=== PATIENT | male | born 1960 | race African-American/Black ===

== ENCOUNTER 2017-07-21 15:30 | Inpatient (IN) | payer MEDICARE ==
[~2017-07-21] VITALS: Ht 182.9 cm; Wt 84.6 kg
[2017-07-21] MEDS ORDERED: ONDANSETRON HCL 4 MG/2 ML VIAL ONE ×2 (16:43→20:22)
[2017-07-21] MEDS ORDERED: HYDROMORPHONE 1 MG/1 ML AMP ONE (16:44)
[2017-07-21] MEDS ORDERED: METOCLOPRAMIDE 10 MG/2 ML VIAL ONE (16:44)
[2017-07-21] MEDS ORDERED: SODIUM CHLORIDE 0.9% 1000ML 1,000 ML IV ONE (16:44)
[2017-07-21 17:38] LABS: BASOPHILS % (AUTO) 0.6 % (0.0-5.0); EOSINOPHILS % (AUTO) 0.4 % (0.0-8.0); LYMPHOCYTES % (AUTO) 17.9 % (21.0-51.0); MEAN CORPUSCULAR HEMOGLOBIN 31.3 pg (27.0-33.0); MEAN CORPUSCULAR HGB CONC 34.1 g/dL (32.0-36.0); MEAN CORPUSCULAR VOLUME 91.8 fL (79-99); MONOCYTES % (AUTO) 8.5 % (3.0-13.0); NEUTROPHILS % (AUTO) 72.6 % (40.0-77.0); NUCLEATED RED BLOOD CELLS 0.1 % (0.0-0.19); PLATELET COUNT (AUTO) 194 K/uL (130-400); RED CELL DISTRIBUTION WIDTH 14.5 % (11.0-15.5); WHITE BLOOD COUNT (AUTO) 8.2 K/uL (4.8-10.8)
[2017-07-21 17:49] LABS: ALBUMIN 3.7 g/dL (3.5-5.0); BILIRUBIN,TOTAL 0.7 mg/dL (0.2-1.0); POTASSIUM 4.1 mmol/L (3.5-5.1); TOTAL PROTEIN, SERUM 7.4 g/dL (6.0-8.3)
[2017-07-21 20:32] LABS: APPEARANCE,URINE Clear (CLEAR); BILIRUBIN,URINE Negative (NEGATIVE); COLOR,URINE Yellow (YELLOW); GLUCOSE, URINE (UA) TRACE mg/dL (NEGATIVE); KETONES,URINE Trace mg/dL (NEGATIVE); LEUKOCYTE ESTERASE ,URINE Negative (NEGATIVE); NITRATE,URINE Negative (NEGATIVE); OCCULT BLOOD,URINE Trace (NEGATIVE); PH,URINE 8.5 (5.0-8.0); PROTEIN,URINE POS 2+ (NEGATIVE)
[2017-07-21 20:48] LABS: BACTERIA,URINE Rare /HPF (None Seen); RBC,URINE None Seen /HPF (0-1); SQUAMOUS EPITHELIAL CELL,UR 0-2 /LPF (0-2); WBC,URINE 0-1 /HPF (0-1)
[2017-07-22] VITALS (7 sets, daily range): BP systolic 96–146; BP diastolic 60–87
[2017-07-22] MEDS ORDERED: HYDROMORPHONE HCL 2 MG/ML VIAL IVP PRN (01:00)
[2017-07-22] MEDS ORDERED: HYDROMORPHONE 1 MG/1 ML AMP IVP PRN (01:08)
[2017-07-22] MEDS ORDERED: HYDROMORPHONE HCL 2 MG/ML VIAL ONE ×2 (01:23→09:41)
[2017-07-22] MEDS: METOCLOPRAMIDE 10 MG/2 ML VIAL IVP SCH ×3 (05:50→22:17)
[2017-07-22] MEDS ORDERED: PANTOPRAZOLE 40 MG/VIAL IVP SCH (09:00)
[2017-07-22] MEDS: HYDROMORPHONE HCL 2 MG/ML VIAL IVP PRN ×2 (09:59→18:22)
[2017-07-22] MEDS: PANTOPRAZOLE SODIUM 40 MG TABLET.DR PO SCH (10:05)
[2017-07-22] MEDS: ERYTHROMYCIN BASE 250 MG TABLET PO SCH ×2 (17:40→23:48)
[2017-07-22] MEDS ORDERED: HEPARIN SODIUM 5000UNIT/ML 1ML VIAL IJ PRN (20:30)
[2017-07-22] MEDS ORDERED: SODIUM CHLORIDE 0.9% 1000ML 1,000 ML IV PRN (20:30)
[2017-07-22] MEDS ORDERED: ALBUMIN (HUMAN) 25% 100 ML IV PRN (20:30)
[2017-07-22] MEDS ORDERED: 0.9% SODIUM CHLORIDE 250 ML IV BAG IV PRN (20:30)
[2017-07-22] MEDS: HEPARIN SODIUM 5000UNIT/ML 1ML VIAL IJ PRN (23:48)
[2017-07-23] VITALS (12 sets, daily range): BP systolic 103–150; BP diastolic 60–85
[2017-07-23] MEDS ORDERED: HYDROMORPHONE 1 MG/1 ML AMP ONE (02:05)
[2017-07-23] MEDS: METOCLOPRAMIDE 10 MG/2 ML VIAL IVP SCH ×3 (06:00→19:55)
[2017-07-23] MEDS ORDERED: ONDANSETRON HCL 4 MG/2 ML VIAL IVP PRN (08:00)
[2017-07-23] MEDS: ERYTHROMYCIN BASE 250 MG TABLET PO SCH ×2 (08:15→17:34)
[2017-07-23] MEDS: HYDROMORPHONE HCL 2 MG/ML VIAL IVP PRN ×2 (09:57→18:12)
[2017-07-23] MEDS: PANTOPRAZOLE SODIUM 40 MG TABLET.DR PO SCH (14:29)
[2017-07-24] VITALS: BP 98/52
[2017-07-24] MEDS: ERYTHROMYCIN BASE 250 MG TABLET PO SCH ×3 (00:17→18:03)
[2017-07-24] MEDS: HYDROMORPHONE HCL 2 MG/ML VIAL IVP PRN ×3 (02:00→18:04)
[2017-07-24 04:00] VITALS: BP 106/66
[2017-07-24 05:47] LABS: MEAN CORPUSCULAR HEMOGLOBIN 32.7 pg (27.0-33.0); MEAN CORPUSCULAR HGB CONC 34.9 g/dL (32.0-36.0); MEAN CORPUSCULAR VOLUME 93.8 fL (79-99); PLATELET COUNT (AUTO) 165 K/uL (130-400); RED CELL DISTRIBUTION WIDTH 14.4 % (11.0-15.5); WHITE BLOOD COUNT (AUTO) 5.6 K/uL (4.8-10.8)
[2017-07-24 06:06] LABS: CREATININE 7.7 mg/dL (0.5-1.5); PHOSPHORUS 5.8 mg/dL (2.5-4.9); POTASSIUM 3.8 mmol/L (3.5-5.1)
[2017-07-24] MEDS: METOCLOPRAMIDE 5 MG TABLET PO SCH ×4 (06:08→21:48)
[2017-07-24 07:00] VITALS: BP 124/60
[2017-07-24 07:04] LABS: EOSINOPHILS % (MANUAL) 4 % (1-6); LYMPHOCYTES % (MANUAL) 30 % (22-44); MONOCYTES % (MANUAL) 8 % (2-9); SEGMENTED NEUTROPHILS % 58 % (40-70)
[2017-07-24 07:05] LABS: MAN.DIFF COMMENT-IMPRESSION MANUAL DIFFERENTIAL
[2017-07-24 07:06] LABS: PLATELET MORPHOLOGY COMMENT ADEQUATE
[2017-07-24] MEDS: PANTOPRAZOLE SODIUM 40 MG TABLET.DR PO SCH ×3 (09:00→21:47)
[2017-07-24 11:00] VITALS: BP 128/65
[2017-07-24 16:00] VITALS: BP 116/55
[2017-07-24 20:00] VITALS: BP 110/70
[2017-07-25] VITALS: BP 101/60
[2017-07-25] MEDS: ERYTHROMYCIN BASE 250 MG TABLET PO SCH ×3 (01:00→18:04)
[2017-07-25] MEDS: HYDROMORPHONE HCL 2 MG/ML VIAL IVP PRN ×4 (02:07→18:05)
[2017-07-25 04:00] VITALS: BP 116/82
[2017-07-25] MEDS: METOCLOPRAMIDE 5 MG TABLET PO SCH ×4 (06:47→21:51)
[2017-07-25 07:00] VITALS: BP 142/73
[2017-07-25] MEDS: PANTOPRAZOLE SODIUM 40 MG TABLET.DR PO SCH ×3 (09:00→21:51)
[2017-07-25 11:00] VITALS: BP 129/79
[2017-07-25 16:00] VITALS: BP 113/68
[2017-07-25 20:00] VITALS: BP_SYST 113; BP_SYST 133; BP_DIAS 74
[2017-07-26] VITALS (7 sets, daily range): BP systolic 100–128; BP diastolic 53–94
[2017-07-26] MEDS: ERYTHROMYCIN BASE 250 MG TABLET PO SCH ×3 (01:35→17:43)
[2017-07-26] MEDS: HYDROMORPHONE HCL 2 MG/ML VIAL IVP PRN ×3 (02:12→17:43)
[2017-07-26 05:58] LABS: MEAN CORPUSCULAR HEMOGLOBIN 32.8 pg (27.0-33.0); MEAN CORPUSCULAR HGB CONC 34.6 g/dL (32.0-36.0); PLATELET COUNT (AUTO) 151 K/uL (130-400); RED BLOOD CELL COUNT(AUTO) 3.26 MIL/uL (4.50-6.20); RED CELL DISTRIBUTION WIDTH 14.6 % (11.0-15.5); WHITE BLOOD COUNT (AUTO) 6.3 K/uL (4.8-10.8)
[2017-07-26 06:09] LABS: CREATININE 7.5 mg/dL (0.5-1.5); POTASSIUM 3.9 mmol/L (3.5-5.1)
[2017-07-26] MEDS: METOCLOPRAMIDE 5 MG TABLET PO SCH ×3 (06:49→17:43)
[2017-07-26] MEDS: PANTOPRAZOLE SODIUM 40 MG TABLET.DR PO SCH ×2 (10:00→22:01)
[2017-07-27] MEDS: ERYTHROMYCIN BASE 250 MG TABLET PO SCH ×2 (00:55→08:49)
[2017-07-27] MEDS: HYDROMORPHONE HCL 2 MG/ML VIAL IVP PRN ×2 (02:04→09:52)
[2017-07-27 03:15] VITALS: BP 109/74
[2017-07-27 06:18] LABS: HEMATOCRIT 29.6 % (42-54); MEAN CORPUSCULAR HEMOGLOBIN 31.2 pg (27.0-33.0); MEAN CORPUSCULAR HGB CONC 33.3 g/dL (32.0-36.0); MEAN CORPUSCULAR VOLUME 93.7 fL (79-99); PLATELET COUNT (AUTO) 154 K/uL (130-400); RED BLOOD CELL COUNT(AUTO) 3.16 MIL/uL (4.50-6.20); RED CELL DISTRIBUTION WIDTH 14.6 % (11.0-15.5); WHITE BLOOD COUNT (AUTO) 6.4 K/uL (4.8-10.8)
[2017-07-27 06:34] LABS: POTASSIUM 3.8 mmol/L (3.5-5.1)
[2017-07-27 06:38] LABS: CREATININE 8.3 mg/dL (0.5-1.5)
[2017-07-27 07:46] VITALS: BP 108/66
[2017-07-27] MEDS: HEPARIN SODIUM 5000UNIT/ML 1ML VIAL IJ PRN (08:36)
[2017-07-27] MEDS: METOCLOPRAMIDE 5 MG TABLET PO SCH ×2 (08:49→09:50)
[2017-07-27] MEDS: PANTOPRAZOLE SODIUM 40 MG TABLET.DR PO SCH (08:49)
[2017-07-27] MEDS ORDERED: PANT40TA25 PO (09:44)
== END 2017-07-27 10:35 | disposition home or self-care (01) | DRG 391 ==
LOC: EDH 15:30 → OBSVTOIN 18:25 → EDHIP 18:25 → 3DH 23:57 → 2AH 07-22 20:32
PROVIDERS: ADMIT Internal Medicine Nephrology; ATTEND Internal Medicine Nephrology
PROC: 5A1D70Z Performance of Urinary Filtration, Intermittent, Less than 6 Hours Per Day (ICD-10-PCS; 2017-07-22)
PROC: 0DB58ZX Excision of Esophagus, Via Natural or Artificial Opening Endoscopic, Diagnostic (ICD-10-PCS; principal; 2017-07-23)
PROC: 0DB68ZX Excision of Stomach, Via Natural or Artificial Opening Endoscopic, Diagnostic (ICD-10-PCS; 2017-07-23)
PROC: 5A1D70Z Performance of Urinary Filtration, Intermittent, Less than 6 Hours Per Day (ICD-10-PCS; 2017-07-24)
PROC: 5A1D70Z Performance of Urinary Filtration, Intermittent, Less than 6 Hours Per Day (ICD-10-PCS; 2017-07-27)
DX: K29.00 Acute gastritis without bleeding (principal); N18.6 End stage renal disease; I95.89 Other hypotension; E11.22 Type 2 diabetes mellitus with diabetic chronic kidney disease; E11.51 Type 2 diabetes mellitus with diabetic peripheral angiopathy without gangrene; K31.84 Gastroparesis; E11.43 Type 2 diabetes mellitus with diabetic autonomic (poly)neuropathy; I12.0 Hypertensive chronic kidney disease with stage 5 chronic kidney disease or end stage renal disease; R53.1 Weakness; K21.0 Gastro-esophageal reflux disease with esophagitis; K44.9 Diaphragmatic hernia without obstruction or gangrene; M54.9 Dorsalgia, unspecified; D64.9 Anemia, unspecified; E66.9 Obesity, unspecified; G89.29 Other chronic pain; Z28.21 Immunization not carried out because of patient refusal; Z98.84 Bariatric surgery status; Z99.2 Dependence on renal dialysis; Z82.49 Family history of ischemic heart disease and other diseases of the circulatory system; Z88.0 Allergy status to penicillin; Z68.25 Body mass index [BMI] 25.0-25.9, adult; Z90.49 Acquired absence of other specified parts of digestive tract
CPT/HCPCS: 36415; 76700; 80048; 80053; 81001; 82150; 83690; 84100; 85025; 85027; 88305; 88312; 88342; 90935; A4218; C9113; J1170; J1644; J2405; J2765; J7030

== ENCOUNTER 2017-08-09 18:22 | Inpatient (IN) | payer MEDICARE ==
[~2017-08-09] VITALS: Ht 182.9 cm; Wt 82.1 kg
[~2017-08-09 18:22] MED LIST: PANT40TA25 PO
[2017-08-09 19:18] LABS: APPEARANCE,URINE Clear (CLEAR); BILIRUBIN,URINE Negative (NEGATIVE); COLOR,URINE Yellow (YELLOW); GLUCOSE, URINE (UA) 250 mg/dL (NEGATIVE); KETONES,URINE Trace mg/dL (NEGATIVE); LEUKOCYTE ESTERASE ,URINE Negative (NEGATIVE); NITRATE,URINE Negative (NEGATIVE); OCCULT BLOOD,URINE Small (NEGATIVE); PH,URINE 8.5 (5.0-8.0); PROTEIN,URINE POS 2+ (NEGATIVE); UROBILINOGEN,URINE 0.2 mg/dL (0.2-1.0)
[2017-08-09 19:26] LABS: AMPHET/METH SCREEN,URINE NEGATIVE (NEGATIVE); BARBITURATE SCREEN, URINE NEGATIVE (NEGATIVE); BENZODIAZEPINES SCREEN,URINE NEGATIVE (NEGATIVE); CANNABINOID SCREEN,URINE NEGATIVE (NEGATIVE); COCAINE SCREEN,URINE POSITIVE (NEGATIVE); OPIATE SCREEN,URINE NEGATIVE (NEGATIVE); PHENCYCLIDINE SCREEN,URINE NEGATIVE (NEGATIVE)
[2017-08-09 20:22] LABS: BACTERIA,URINE Rare /HPF (None Seen); RBC,URINE 0-1 /HPF (0-1); SQUAMOUS EPITHELIAL CELL,UR Rare /LPF (0-2); WBC,URINE 0-1 /HPF (0-1)
[2017-08-09 20:30] LABS: BASOPHILS % (AUTO) 0.7 % (0.0-5.0); EOSINOPHILS % (AUTO) 0.2 % (0.0-8.0); HEMATOCRIT 30.4 % (42-54); LYMPHOCYTES % (AUTO) 9.1 % (21.0-51.0); MEAN CORPUSCULAR HGB CONC 33.9 g/dL (32.0-36.0); MEAN CORPUSCULAR VOLUME 91.6 fL (79-99); MONOCYTES % (AUTO) 3.2 % (3.0-13.0); NEUTROPHILS % (AUTO) 86.8 % (40.0-77.0); PLATELET COUNT (AUTO) 172 K/uL (130-400); RED BLOOD CELL COUNT(AUTO) 3.32 MIL/uL (4.50-6.20); RED CELL DISTRIBUTION WIDTH 14.7 % (11.0-15.5); WHITE BLOOD COUNT (AUTO) 8.1 K/uL (4.8-10.8)
[2017-08-09 20:47] LABS: ALBUMIN 3.7 g/dL (3.5-5.0); BILIRUBIN,TOTAL 0.5 mg/dL (0.2-1.0); POTASSIUM 4.3 mmol/L (3.5-5.1); TOTAL PROTEIN, SERUM 7.6 g/dL (6.0-8.3)
[2017-08-09 20:48] LABS: CREATININE 11.3 mg/dL (0.5-1.5)
[2017-08-09] MEDS ORDERED: ONDANSETRON HCL 4 MG/2 ML VIAL ONE (21:04)
[2017-08-09] MEDS ORDERED: HYDROMORPHONE 1 MG/1 ML AMP ONE (21:04)
[2017-08-10] MEDS ORDERED: HYDROMORPHONE 1 MG/1 ML AMP ONE ×4 (03:52→22:24)
[2017-08-10] MEDS ORDERED: ONDANSETRON HCL 4 MG/2 ML VIAL ONE ×4 (03:53→22:24)
[2017-08-10 06:45] LABS: BASOPHILS % (AUTO) 0.7 % (0.0-5.0); EOSINOPHILS % (AUTO) 0.4 % (0.0-8.0); HEMATOCRIT 29.4 % (42-54); MEAN CORPUSCULAR HEMOGLOBIN 31.2 pg (27.0-33.0); MEAN CORPUSCULAR HGB CONC 33.9 g/dL (32.0-36.0); MEAN CORPUSCULAR VOLUME 92.1 fL (79-99); MONOCYTES % (AUTO) 5.6 % (3.0-13.0); NEUTROPHILS % (AUTO) 76.3 % (40.0-77.0); NUCLEATED RED BLOOD CELLS 0.1 % (0.0-0.19); PLATELET COUNT (AUTO) 203 K/uL (130-400); RED BLOOD CELL COUNT(AUTO) 3.19 MIL/uL (4.50-6.20); RED CELL DISTRIBUTION WIDTH 14.6 % (11.0-15.5); WHITE BLOOD COUNT (AUTO) 8.3 K/uL (4.8-10.8)
[2017-08-10 06:59] LABS: ALBUMIN 3.4 g/dL (3.5-5.0); BILIRUBIN,DIRECT 0.1 mg/dL (0.0-0.3); BILIRUBIN,TOTAL 0.5 mg/dL (0.2-1.0); POTASSIUM 4.8 mmol/L (3.5-5.1); TOTAL PROTEIN, SERUM 6.9 g/dL (6.0-8.3)
[2017-08-10 07:09] LABS: CREATININE 11.7 mg/dL (0.5-1.5)
[2017-08-10] MEDS ORDERED: HYDR-4068 PO (10:38)
[2017-08-10] MEDS ORDERED: METO5 PO (10:38)
[2017-08-10] MEDS ORDERED: HEPARIN SODIUM 5000UNIT/ML 1ML VIAL ONE (12:52)
[2017-08-10 23:47] VITALS: BP 123/83
[2017-08-11] MEDS ORDERED: HYDROMORPHONE 1 MG/1 ML AMP IVP PRN (01:45)
[2017-08-11] MEDS: HYDROMORPHONE HCL 2 MG/ML VIAL IVP PRN ×4 (03:45→22:38)
[2017-08-11] MEDS: ONDANSETRON HCL 4 MG/2 ML VIAL IVP PRN ×5 (03:51→22:41)
[2017-08-11 04:00] VITALS: BP 108/71
[2017-08-11 06:04] LABS: HEMATOCRIT 28.9 % (42-54); MEAN CORPUSCULAR HEMOGLOBIN 32.6 pg (27.0-33.0); MEAN CORPUSCULAR HGB CONC 35.2 g/dL (32.0-36.0); MEAN CORPUSCULAR VOLUME 92.6 fL (79-99); NUCLEATED RED BLOOD CELLS 0.1 % (0.0-0.19); PLATELET COUNT (AUTO) 181 K/uL (130-400); RED BLOOD CELL COUNT(AUTO) 3.12 MIL/uL (4.50-6.20); RED CELL DISTRIBUTION WIDTH 14.6 % (11.0-15.5); WHITE BLOOD COUNT (AUTO) 6.8 K/uL (4.8-10.8)
[2017-08-11 06:17] LABS: POTASSIUM 4.1 mmol/L (3.5-5.1)
[2017-08-11 07:16] VITALS: BP 101/66
[2017-08-11] MEDS ORDERED: PANTOPRAZOLE 40 MG/VIAL IVP SCH (09:00)
[2017-08-11 10:40] VITALS: BP 110/70
[2017-08-11] MEDS: METOCLOPRAMIDE 5 MG TABLET PO SCH ×2 (12:50→16:43)
[2017-08-11 16:45] VITALS: BP 131/87
[2017-08-11 19:46] VITALS: BP 114/58
[2017-08-11 23:39] VITALS: BP 123/63
[2017-08-12 03:53] VITALS: BP 106/69
[2017-08-12] MEDS: HYDROMORPHONE HCL 2 MG/ML VIAL IVP PRN ×4 (04:43→22:28)
[2017-08-12] MEDS: ONDANSETRON HCL 4 MG/2 ML VIAL IVP PRN ×4 (04:43→22:28)
[2017-08-12] MEDS: METOCLOPRAMIDE 5 MG TABLET PO SCH ×3 (06:11→16:27)
[2017-08-12] MEDS ORDERED: ALBUMIN (HUMAN) 25% 100 ML IV PRN (06:30)
[2017-08-12] MEDS ORDERED: SODIUM CHLORIDE 0.9% 1000ML 1,000 ML IV PRN (06:30)
[2017-08-12] MEDS ORDERED: 0.9% SODIUM CHLORIDE 250 ML IV BAG IV PRN (06:30)
[2017-08-12] MEDS ORDERED: HEPARIN SODIUM 5000UNIT/ML 1ML VIAL IJ PRN ×2 (06:30)
[2017-08-12 08:00] VITALS: BP 112/65
[2017-08-12] MEDS: PANTOPRAZOLE SODIUM 40 MG TABLET.DR PO SCH (09:00)
[2017-08-12 09:32] LABS: BASOPHILS % (AUTO) 1.2 % (0.0-5.0); EOSINOPHILS % (AUTO) 6.1 % (0.0-8.0); HEMATOCRIT 30.5 % (42-54); LYMPHOCYTES % (AUTO) 20.1 % (21.0-51.0); MEAN CORPUSCULAR HEMOGLOBIN 31.5 pg (27.0-33.0); MEAN CORPUSCULAR HGB CONC 34.1 g/dL (32.0-36.0); MEAN CORPUSCULAR VOLUME 92.1 fL (79-99); MONOCYTES % (AUTO) 7.8 % (3.0-13.0); NEUTROPHILS % (AUTO) 64.8 % (40.0-77.0); PLATELET COUNT (AUTO) 157 K/uL (130-400); RED BLOOD CELL COUNT(AUTO) 3.31 MIL/uL (4.50-6.20); RED CELL DISTRIBUTION WIDTH 14.8 % (11.0-15.5); WHITE BLOOD COUNT (AUTO) 6.3 K/uL (4.8-10.8)
[2017-08-12 09:34] LABS: CREATININE 5.9 mg/dL (0.5-1.5); POTASSIUM 3.1 mmol/L (3.5-5.1)
[2017-08-12 09:40] LABS: PARTIAL THROMBOPLASTIN TIME 23.2 SEC (26.3-35.5)
[2017-08-12 09:58] LABS: INR 0.99 (0.85-1.15); PROTHROMBIN TIME 10.4 SEC (9.6-11.6)
[2017-08-12] MEDS ORDERED: LIDOCAINE HCL 1% MDV 50ML VIAL ONE (10:05)
[2017-08-12] MEDS ORDERED: ONDANSETRON HCL 4 MG/2 ML VIAL IVP ONE (10:16)
[2017-08-12 11:49] VITALS: BP_SYST 102; BP_SYST 130; BP_DIAS 62; BP_DIAS 75
[2017-08-12 15:59] VITALS: BP 104/58
[2017-08-12 20:00] VITALS: BP 104/61
[2017-08-12 23:55] VITALS: BP 103/61
[2017-08-13 04:00] VITALS: BP 104/68
[2017-08-13] MEDS: ONDANSETRON HCL 4 MG/2 ML VIAL IVP PRN ×4 (04:26→22:36)
[2017-08-13] MEDS: HYDROMORPHONE HCL 2 MG/ML VIAL IVP PRN ×4 (04:26→22:36)
[2017-08-13] MEDS: METOCLOPRAMIDE 5 MG TABLET PO SCH ×3 (06:50→16:30)
[2017-08-13 08:03] VITALS: BP 101/63
[2017-08-13] MEDS: PANTOPRAZOLE SODIUM 40 MG TABLET.DR PO SCH (09:46)
[2017-08-13 12:03] VITALS: BP 139/65
[2017-08-13 16:00] VITALS: BP 109/67
[2017-08-13 19:00] VITALS: BP 108/71
[2017-08-13] MEDS ORDERED: ZOLPIDEM TARTRATE 5 MG TAB PO SCH (21:00)
[2017-08-14] VITALS (7 sets, daily range): BP systolic 87–112; BP diastolic 55–68
[2017-08-14] MEDS: METOCLOPRAMIDE 5 MG TABLET PO SCH ×3 (06:18→16:15)
[2017-08-14] MEDS: HYDROMORPHONE HCL 2 MG/ML VIAL IVP PRN ×3 (06:18→18:11)
[2017-08-14] MEDS: ONDANSETRON HCL 4 MG/2 ML VIAL IVP PRN ×2 (06:18→18:11)
[2017-08-14] MEDS: PANTOPRAZOLE SODIUM 40 MG TABLET.DR PO SCH (11:36)
[2017-08-14] MEDS: MIDODRINE HCL 5 MG TABLET PO SCH ×2 (16:15→21:28)
[2017-08-14] MEDS: ZOLPIDEM TARTRATE 5 MG TAB PO SCH (21:28)
[2017-08-15 03:15] VITALS: BP 100/55
[2017-08-15] MEDS: ONDANSETRON HCL 4 MG/2 ML VIAL IVP PRN ×3 (04:44→19:01)
[2017-08-15] MEDS: HYDROMORPHONE HCL 2 MG/ML VIAL IVP PRN ×3 (04:50→19:06)
[2017-08-15] MEDS: METOCLOPRAMIDE 5 MG TABLET PO SCH ×3 (06:57→16:34)
[2017-08-15 09:13] VITALS: BP 77/43
[2017-08-15] MEDS: PANTOPRAZOLE SODIUM 40 MG TABLET.DR PO SCH (11:53)
[2017-08-15] MEDS: MIDODRINE HCL 5 MG TABLET PO SCH ×3 (11:53→22:01)
[2017-08-15 12:12] VITALS: BP 104/46
[2017-08-15 15:56] VITALS: BP 114/45
[2017-08-15 19:55] VITALS: BP 97/60
[2017-08-15] MEDS: ZOLPIDEM TARTRATE 5 MG TAB PO SCH (22:01)
[2017-08-15 23:15] VITALS: BP 110/55
[2017-08-16] MEDS: ONDANSETRON HCL 4 MG/2 ML VIAL IVP PRN ×2 (01:29→08:46)
[2017-08-16] MEDS: HYDROMORPHONE HCL 2 MG/ML VIAL IVP PRN ×2 (01:35→08:46)
[2017-08-16 03:00] VITALS: BP 101/56
[2017-08-16] MEDS: METOCLOPRAMIDE 5 MG TABLET PO SCH (07:01)
[2017-08-16 07:42] VITALS: BP 111/64
[2017-08-16] MEDS: MIDODRINE HCL 5 MG TABLET PO SCH (08:45)
[2017-08-16] MEDS: PANTOPRAZOLE SODIUM 40 MG TABLET.DR PO SCH (08:45)
[2017-08-16 11:32] VITALS: BP 135/95
== END 2017-08-16 13:35 | disposition home or self-care (01) | DRG 377 ==
LOC: EDH 18:22 → EDHIP 21:29 → 3AH 08-10 22:36
PROVIDERS: ADMIT Internal Medicine Nephrology; ATTEND Internal Medicine Nephrology
PROC: 5A1D70Z Performance of Urinary Filtration, Intermittent, Less than 6 Hours Per Day (ICD-10-PCS; 2017-08-10)
PROC: 05PYX3Z Removal of Infusion Device from Upper Vein, External Approach (ICD-10-PCS; principal; 2017-08-12)
PROC: 5A1D70Z Performance of Urinary Filtration, Intermittent, Less than 6 Hours Per Day (ICD-10-PCS; 2017-08-12)
DX: K27.4 Chronic or unspecified peptic ulcer, site unspecified, with hemorrhage (principal); N18.6 End stage renal disease; I95.89 Other hypotension; I12.0 Hypertensive chronic kidney disease with stage 5 chronic kidney disease or end stage renal disease; E11.21 Type 2 diabetes mellitus with diabetic nephropathy; K31.84 Gastroparesis; E11.43 Type 2 diabetes mellitus with diabetic autonomic (poly)neuropathy; G47.00 Insomnia, unspecified; G89.29 Other chronic pain; E66.9 Obesity, unspecified; E11.22 Type 2 diabetes mellitus with diabetic chronic kidney disease; D64.9 Anemia, unspecified; Z99.2 Dependence on renal dialysis; Z28.21 Immunization not carried out because of patient refusal; Z98.84 Bariatric surgery status; Z91.15 Patient's noncompliance with renal dialysis; Z88.0 Allergy status to penicillin; Z91.19 Patient's noncompliance with other medical treatment and regimen; Z76.5 Malingerer [conscious simulation]; Z68.24 Body mass index [BMI] 24.0-24.9, adult
CPT/HCPCS: 36415; 36589; 71045; 80048; 80053; 80076; 80305; 81001; 82948; 83690; 84100; 85025; 85027; 85610; 85730; 90935; 93005; C9113; J1170; J1644; J2405; J3490

== ENCOUNTER 2017-08-28 12:31 | Inpatient (IN) | payer MEDICARE ==
[~2017-08-28] VITALS: Ht 182.9 cm; Wt 81.9 kg
[~2017-08-28 12:31] MED LIST changes: +HYDR-4068 PO; +METO5 PO
[2017-08-28 13:45] LABS: BASOPHILS % (AUTO) 0.6 % (0.0-5.0); EOSINOPHILS % (AUTO) 0.2 % (0.0-8.0); HEMATOCRIT 30.6 % (42-54); MEAN CORPUSCULAR HEMOGLOBIN 31.3 pg (27.0-33.0); MEAN CORPUSCULAR HGB CONC 33.4 g/dL (32.0-36.0); MEAN CORPUSCULAR VOLUME 93.6 fL (79-99); MONOCYTES % (AUTO) 3.2 % (3.0-13.0); PLATELET COUNT (AUTO) 210 K/uL (130-400); RED BLOOD CELL COUNT(AUTO) 3.27 MIL/uL (4.50-6.20); RED CELL DISTRIBUTION WIDTH 15.7 % (11.0-15.5); WHITE BLOOD COUNT (AUTO) 8.1 K/uL (4.8-10.8)
[2017-08-28] MEDS ORDERED: SODIUM CHLORIDE 0.9% 1000ML 1,000 ML IV ONE (13:57)
[2017-08-28] MEDS ORDERED: ONDANSETRON HCL 4 MG/2 ML VIAL ONE ×2 (13:57→17:08)
[2017-08-28 14:13] LABS: ALBUMIN 3.9 g/dL (3.5-5.0); BILIRUBIN,TOTAL 0.5 mg/dL (0.2-1.0); POTASSIUM 4.1 mmol/L (3.5-5.1); TOTAL PROTEIN, SERUM 8.3 g/dL (6.0-8.3)
[2017-08-28 14:28] LABS: CREATININE 10.9 mg/dL (0.5-1.5)
[2017-08-28] MEDS ORDERED: HYDROMORPHONE HCL 2 MG/ML VIAL ONE ×2 (14:44→21:02)
[2017-08-28] MEDS ORDERED: METOCLOPRAMIDE 10 MG/2 ML VIAL IVP SCH (17:45)
[2017-08-28 18:35] VITALS: BP 189/98
[2017-08-28 20:00] VITALS: BP 155/90
[2017-08-28] MEDS: ONDANSETRON HCL 4 MG/2 ML VIAL IVP PRN (21:09)
[2017-08-29] VITALS: BP 128/86
[2017-08-29] MEDS: METOCLOPRAMIDE 10 MG/2 ML VIAL IVP SCH ×2 (01:11→16:49)
[2017-08-29 04:00] VITALS: BP 146/88
[2017-08-29] MEDS ORDERED: HYDROMORPHONE HCL 2 MG/ML VIAL ONE (04:16)
[2017-08-29] MEDS: ONDANSETRON HCL 4 MG/2 ML VIAL IVP PRN ×2 (04:54→16:49)
[2017-08-29 05:41] LABS: BASOPHILS % (AUTO) 0.7 % (0.0-5.0); EOSINOPHILS % (AUTO) 0.7 % (0.0-8.0); HEMATOCRIT 25.8 % (42-54); LYMPHOCYTES % (AUTO) 14.4 % (21.0-51.0); MEAN CORPUSCULAR HEMOGLOBIN 32.8 pg (27.0-33.0); MEAN CORPUSCULAR VOLUME 93.7 fL (79-99); MONOCYTES % (AUTO) 6.3 % (3.0-13.0); NEUTROPHILS % (AUTO) 77.9 % (40.0-77.0); PLATELET COUNT (AUTO) 190 K/uL (130-400); RED BLOOD CELL COUNT(AUTO) 2.76 MIL/uL (4.50-6.20); RED CELL DISTRIBUTION WIDTH 15.5 % (11.0-15.5); WHITE BLOOD COUNT (AUTO) 6.7 K/uL (4.8-10.8)
[2017-08-29 05:48] LABS: POTASSIUM 4.2 mmol/L (3.5-5.1)
[2017-08-29 05:51] LABS: CREATININE 11.2 mg/dL (0.5-1.5)
[2017-08-29 07:30] VITALS: BP 140/90
[2017-08-29] MEDS ORDERED: FAMOTIDINE/PF 20 MG/2 ML VIAL IV SCH (09:00)
[2017-08-29 11:00] VITALS: BP 122/67
[2017-08-29] MEDS: HYDROMORPHONE 1 MG/1 ML AMP IVP PRN ×2 (13:10→20:57)
[2017-08-29 16:00] VITALS: BP 128/76
[2017-08-29 20:00] VITALS: BP 164/97
[2017-08-30] VITALS: BP 150/97
[2017-08-30] MEDS: METOCLOPRAMIDE 10 MG/2 ML VIAL IVP SCH ×3 (01:01→17:00)
[2017-08-30 04:00] VITALS: BP 126/84
[2017-08-30] MEDS: HYDROMORPHONE 1 MG/1 ML AMP IVP PRN ×2 (04:59→20:02)
[2017-08-30] MEDS: ONDANSETRON HCL 4 MG/2 ML VIAL IVP PRN ×2 (04:59→11:32)
[2017-08-30 07:30] VITALS: BP 122/71
[2017-08-30] MEDS: PANTOPRAZOLE SODIUM 40 MG TABLET.DR PO SCH (09:05)
[2017-08-30 11:00] VITALS: BP 122/77
[2017-08-30] MEDS ORDERED: HYDROMORPHONE HCL 2 MG/ML VIAL ONE (12:47)
[2017-08-30 16:00] VITALS: BP 154/84
[2017-08-30 20:00] VITALS: BP 128/79
[2017-08-30] MEDS: ZOLPIDEM TARTRATE 5 MG TAB PO SCH (20:02)
[2017-08-31] VITALS (7 sets, daily range): BP systolic 106–145; BP diastolic 64–83
[2017-08-31] MEDS: METOCLOPRAMIDE 10 MG/2 ML VIAL IVP SCH ×3 (01:00→16:57)
[2017-08-31] MEDS: ONDANSETRON HCL 4 MG/2 ML VIAL IVP PRN ×3 (04:01→19:58)
[2017-08-31] MEDS: HYDROMORPHONE 1 MG/1 ML AMP IVP PRN (04:02)
[2017-08-31] MEDS: PANTOPRAZOLE SODIUM 40 MG TABLET.DR PO SCH (09:02)
[2017-08-31] MEDS ORDERED: HEPARIN SODIUM 5000UNIT/ML 1ML VIAL IJ PRN (10:45)
[2017-08-31] MEDS ORDERED: 0.9% SODIUM CHLORIDE 250 ML IV BAG IV PRN (10:45)
[2017-08-31] MEDS ORDERED: ALBUMIN (HUMAN) 25% 100 ML IV PRN (10:45)
[2017-08-31] MEDS ORDERED: SODIUM CHLORIDE 0.9% 1000ML 1,000 ML IV PRN (10:45)
[2017-08-31 11:48] LABS: HEMATOCRIT 27.2 % (42-54); MEAN CORPUSCULAR HEMOGLOBIN 32.5 pg (27.0-33.0); MEAN CORPUSCULAR HGB CONC 34.8 g/dL (32.0-36.0); MEAN CORPUSCULAR VOLUME 93.3 fL (79-99); PLATELET COUNT (AUTO) 200 K/uL (130-400); RED BLOOD CELL COUNT(AUTO) 2.91 MIL/uL (4.50-6.20); RED CELL DISTRIBUTION WIDTH 15.3 % (11.0-15.5)
[2017-08-31 11:57] LABS: POTASSIUM 4.3 mmol/L (3.5-5.1)
[2017-08-31] MEDS ORDERED: HYDROMORPHONE HCL 2 MG/ML VIAL ONE ×2 (12:01→19:55)
[2017-08-31 12:10] LABS: CREATININE 12.2 mg/dL (0.5-1.5)
[2017-08-31 12:18] LABS: PARTIAL THROMBOPLASTIN TIME 27.3 SEC (26.3-35.5); PROTHROMBIN TIME 10.5 SEC (9.6-11.6)
[2017-08-31] MEDS: ZOLPIDEM TARTRATE 5 MG TAB PO SCH (19:58)
[2017-09-01] VITALS (7 sets, daily range): BP systolic 119–148; BP diastolic 70–85
[2017-09-01] MEDS: METOCLOPRAMIDE 10 MG/2 ML VIAL IVP SCH ×3 (00:50→16:11)
[2017-09-01] MEDS ORDERED: HYDROMORPHONE HCL 2 MG/ML VIAL ONE ×2 (04:03→12:15)
[2017-09-01] MEDS: ONDANSETRON HCL 4 MG/2 ML VIAL IVP PRN ×3 (04:08→21:03)
[2017-09-01] MEDS ORDERED: LIDOCAINE HCL 1% MDV 50ML VIAL ONE (07:56)
[2017-09-01] MEDS ORDERED: ALTEPLASE 2 MG/2 ML IVCATH ONE (07:57)
[2017-09-01] MEDS ORDERED: ISOVUE-300 100 ML VIAL IV ONE (07:59)
[2017-09-01] MEDS ORDERED: MIDAZOLAM HCL 1 MG/ML 2ML VIAL ONE ×3 (08:32→08:57)
[2017-09-01] MEDS ORDERED: MORPHINE SULFATE 10 MG/ML 1ML SYG ONE (08:33)
[2017-09-01] MEDS ORDERED: MORPHINE SULFATE 2 MG/ML 1ML SYG ONE (08:58)
[2017-09-01] MEDS: PANTOPRAZOLE SODIUM 40 MG TABLET.DR PO SCH (10:10)
[2017-09-01] MEDS: ZOLPIDEM TARTRATE 5 MG TAB PO SCH (21:02)
[2017-09-01] MEDS: HYDROMORPHONE HCL 2 MG/ML VIAL IVP PRN (21:03)
[2017-09-02] MEDS ORDERED: METOCLOPRAMIDE 10 MG/2 ML VIAL ONE (01:32)
[2017-09-02] MEDS: METOCLOPRAMIDE 10 MG/2 ML VIAL IVP SCH ×3 (01:46→10:50)
[2017-09-02 04:00] VITALS: BP_SYST 114; BP_SYST 142; BP_DIAS 61; BP_DIAS 76
[2017-09-02] MEDS: ONDANSETRON HCL 4 MG/2 ML VIAL IVP PRN ×2 (05:47→14:11)
[2017-09-02] MEDS: HYDROMORPHONE HCL 2 MG/ML VIAL IVP PRN ×2 (05:52→14:12)
[2017-09-02 08:30] VITALS: BP 89/61
[2017-09-02] MEDS: PANTOPRAZOLE SODIUM 40 MG TABLET.DR PO SCH (09:45)
[2017-09-02 11:35] VITALS: BP 103/54
[2017-09-02 17:00] VITALS: BP 106/61
[2017-09-02 20:00] VITALS: BP 117/74
[2017-09-02] MEDS: ZOLPIDEM TARTRATE 5 MG TAB PO SCH (20:05)
[2017-09-02 23:31] VITALS: BP 98/57
[2017-09-03] MEDS: METOCLOPRAMIDE 10 MG/2 ML VIAL IVP SCH ×2 (01:00→07:55)
[2017-09-03 04:00] VITALS: BP 111/61
[2017-09-03 07:36] VITALS: BP 98/73
[2017-09-03] MEDS: PANTOPRAZOLE SODIUM 40 MG TABLET.DR PO SCH (07:54)
== END 2017-09-03 11:45 | disposition home or self-care (01) | DRG 314 ==
LOC: EDH 12:31 → EDHIP 16:11 → OBSVTOIN 16:11 → 4BH 18:35
PROVIDERS: ADMIT Internal Medicine Nephrology; ATTEND Internal Medicine Nephrology
PROC: 5A1D70Z Performance of Urinary Filtration, Intermittent, Less than 6 Hours Per Day (ICD-10-PCS; 2017-08-31)
PROC: 5A1D70Z Performance of Urinary Filtration, Intermittent, Less than 6 Hours Per Day (ICD-10-PCS; 2017-09-01)
PROC: B51W1ZZ Fluoroscopy of Dialysis Shunt/Fistula using Low Osmolar Contrast (ICD-10-PCS; principal; 2017-09-03)
DX: T82.510A Breakdown (mechanical) of surgically created arteriovenous fistula, initial encounter (principal); N18.6 End stage renal disease; I12.0 Hypertensive chronic kidney disease with stage 5 chronic kidney disease or end stage renal disease; E11.22 Type 2 diabetes mellitus with diabetic chronic kidney disease; K31.84 Gastroparesis; E11.43 Type 2 diabetes mellitus with diabetic autonomic (poly)neuropathy; Y71.2 Prosthetic and other implants, materials and accessory cardiovascular devices associated with adverse incidents; Z99.2 Dependence on renal dialysis; Z91.19 Patient's noncompliance with other medical treatment and regimen; G89.29 Other chronic pain; Z88.0 Allergy status to penicillin
CPT/HCPCS: 36415; 36901; 36902; 36907; 71045; 74176; 80048; 80053; 83690; 84132; 85025; 85027; 85610; 85730; 87040; 90935; 99152; 99153; C1769; C1894; J1170; J1644; J2250; J2270; J2405; J2765; J2997; J3490; J7030; Q9967

== ENCOUNTER 2017-09-15 11:56 | Emergency (ER) | payer MEDICARE ==
[2017-09-15 13:27] LABS: APPEARANCE,URINE CLEAR (CLEAR); BILIRUBIN,URINE NEGATIVE (NEGATIVE); COLOR,URINE YELLOW (YELLOW); GLUCOSE, URINE (UA) 250 mg/dL (NEGATIVE); KETONES,URINE NEGATIVE (NEGATIVE); LEUKOCYTE ESTERASE ,URINE NEGATIVE (NEGATIVE); NITRATE,URINE NEGATIVE (NEGATIVE); OCCULT BLOOD,URINE SMALL (NEGATIVE); PROTEIN,URINE 100 (NEGATIVE); UROBILINOGEN,URINE 0.2 mg/dL (0.2-1.0)
[2017-09-15 13:31] LABS: AMPHET/METH SCREEN,URINE NEGATIVE (NEGATIVE); BARBITURATE SCREEN, URINE NEGATIVE (NEGATIVE); BENZODIAZEPINES SCREEN,URINE NEGATIVE (NEGATIVE); CANNABINOID SCREEN,URINE NEGATIVE (NEGATIVE); COCAINE SCREEN,URINE NEGATIVE (NEGATIVE); OPIATE SCREEN,URINE NEGATIVE (NEGATIVE); PHENCYCLIDINE SCREEN,URINE NEGATIVE (NEGATIVE)
[2017-09-15 13:39] LABS: BACTERIA,URINE Rare /HPF (None Seen); RBC,URINE 0-1 /HPF (0-1); SQUAMOUS EPITHELIAL CELL,UR Rare /LPF (0-2); WBC,URINE 0-1 /HPF (0-1)
[2017-09-15 14:18] LABS: BASOPHILS % (AUTO) 0.4 % (0.0-5.0); HEMATOCRIT 28.4 % (42-54); MEAN CORPUSCULAR HEMOGLOBIN 32.6 pg (27.0-33.0); MEAN CORPUSCULAR HGB CONC 35.3 g/dL (32.0-36.0); MEAN CORPUSCULAR VOLUME 92.6 fL (79-99); NEUTROPHILS % (AUTO) 89.6 % (40.0-77.0); NUCLEATED RED BLOOD CELLS 0.1 % (0.0-0.19); PLATELET COUNT (AUTO) 175 K/uL (130-400); RED BLOOD CELL COUNT(AUTO) 3.06 MIL/uL (4.50-6.20); RED CELL DISTRIBUTION WIDTH 15.2 % (11.0-15.5); WHITE BLOOD COUNT (AUTO) 9.1 K/uL (4.8-10.8)
[2017-09-15 14:43] LABS: ALBUMIN 3.7 g/dL (3.5-5.0); BILIRUBIN,TOTAL 0.5 mg/dL (0.2-1.0); CREATINE KINASE MB 5.2 ng/mL (0.5-3.6); TOTAL PROTEIN, SERUM 7.6 g/dL (6.0-8.3)
[2017-09-15 14:49] LABS: CREATININE 9.9 mg/dL (0.5-1.5)
[2017-09-15] MEDS ORDERED: ONDANSETRON ODT 4 MG TAB ONE (15:03)
[2017-09-15] MEDS ORDERED: HYDROMORPHONE HCL 0.5 MG/0.5 ML ML ONE (15:04)
[2017-09-15] MEDS ORDERED: PANTOPRAZOLE SODIUM 40 MG TABLET.DR PO ONE (15:40)
[2017-09-15 16:34] LABS: INR 0.95 (0.85-1.15); PARTIAL THROMBOPLASTIN TIME 28.2 SEC (26.3-35.5)
== END 2017-09-15 16:00 | disposition home or self-care (01) ==
LOC: EDH 11:56
DX: G89.4 Chronic pain syndrome (principal); E11.22 Type 2 diabetes mellitus with diabetic chronic kidney disease; I12.0 Hypertensive chronic kidney disease with stage 5 chronic kidney disease or end stage renal disease; N18.6 End stage renal disease; Z79.4 Long term (current) use of insulin; Z87.891 Personal history of nicotine dependence; Z88.0 Allergy status to penicillin
CPT/HCPCS: 36415; 71046; 74176; 80053; 80305; 81001; 82150; 82550; 82553; 83690; 84484; 85025; 85610; 85730; 86850; 86900; 86901; 93005; 96372; 99285; J1170

== ENCOUNTER 2017-10-01 20:38 | Emergency (ER) | payer MEDICARE ==
[2017-10-01] MEDS ORDERED: SODIUM CHLORIDE 0.9% 250 ML IV ONE (21:19)
[2017-10-01] MEDS ORDERED: PROMETHAZINE HCL 25 MG/ML 1ML AMPULE IM ONE (21:19)
[2017-10-01 21:23] LABS: BASOPHILS % (AUTO) 0.5 % (0.0-5.0); EOSINOPHILS % (AUTO) 0.7 % (0.0-8.0); HEMATOCRIT 36.3 % (42-54); MEAN CORPUSCULAR HEMOGLOBIN 32.1 pg (27.0-33.0); MEAN CORPUSCULAR HGB CONC 34.3 g/dL (32.0-36.0); MEAN CORPUSCULAR VOLUME 93.4 fL (79-99); MONOCYTES % (AUTO) 7.4 % (3.0-13.0); NEUTROPHILS % (AUTO) 78.4 % (40.0-77.0); NUCLEATED RED BLOOD CELLS 0.1 % (0.0-0.19); PLATELET COUNT (AUTO) 232 K/uL (130-400); RED BLOOD CELL COUNT(AUTO) 3.89 MIL/uL (4.50-6.20); RED CELL DISTRIBUTION WIDTH 15.3 % (11.0-15.5); WHITE BLOOD COUNT (AUTO) 9.1 K/uL (4.8-10.8)
[2017-10-01 21:30] LABS: APPEARANCE,URINE Clear (CLEAR); BILIRUBIN,URINE Negative (NEGATIVE); COLOR,URINE Yellow (YELLOW); GLUCOSE, URINE (UA) TRACE mg/dL (NEGATIVE); KETONES,URINE Negative (NEGATIVE); LEUKOCYTE ESTERASE ,URINE Negative (NEGATIVE); NITRATE,URINE Negative (NEGATIVE); OCCULT BLOOD,URINE Small (NEGATIVE); PROTEIN,URINE POS 2+ (NEGATIVE); UROBILINOGEN,URINE 0.2 mg/dL (0.2-1.0)
[2017-10-01 21:36] LABS: BACTERIA,URINE None Seen /HPF (None Seen); RBC,URINE 0-1 /HPF (0-1); SQUAMOUS EPITHELIAL CELL,UR 0-2 /LPF (0-2); TRANSITIONAL EPI CELLS,URINE Rare /LPF (None Seen); WBC,URINE None Seen /HPF (0-1)
[2017-10-01] MEDS ORDERED: HYDROMORPHONE HCL 0.5 MG/0.5 ML ML ONE (22:23)
[2017-10-01 22:59] LABS: ALBUMIN 4.1 g/dL (3.5-5.0); BILIRUBIN,TOTAL 0.5 mg/dL (0.2-1.0); POTASSIUM 4.6 mmol/L (3.5-5.1); TOTAL PROTEIN, SERUM 8.3 g/dL (6.0-8.3)
[2017-10-01 23:01] LABS: CREATININE 11.2 mg/dL (0.5-1.5)
== END 2017-10-02 00:24 | disposition home or self-care (01) ==
LOC: EDH 20:38
DX: G89.29 Other chronic pain (principal); R10.9 Unspecified abdominal pain; R11.2 Nausea with vomiting, unspecified; R63.0 Anorexia; E11.22 Type 2 diabetes mellitus with diabetic chronic kidney disease; N18.6 End stage renal disease; Z88.0 Allergy status to penicillin; Z99.2 Dependence on renal dialysis; Z79.4 Long term (current) use of insulin
CPT/HCPCS: 36415; 80053; 81001; 82150; 83690; 85025; 93005; 96374; 96375; 99285; J1170; J2550; J7030

== ENCOUNTER 2017-11-02 14:28 | Emergency (ER) | payer MEDICARE ==
[2017-11-02] MEDS ORDERED: ONDANSETRON HCL MDV 20ML 2 MG/ML VIAL ONE ×2 (14:51→15:28)
[2017-11-02] MEDS ORDERED: MORPHINE SULFATE 4 MG/1ML SYG ONE ×2 (15:00→15:29)
[2017-11-02 15:11] LABS: BASOPHILS % (AUTO) 0.8 % (0.0-5.0); EOSINOPHILS % (AUTO) 2.3 % (0.0-8.0); HEMATOCRIT 35.8 % (42-54); LYMPHOCYTES % (AUTO) 22.6 % (21.0-51.0); MEAN CORPUSCULAR HEMOGLOBIN 32.6 pg (27.0-33.0); MEAN CORPUSCULAR HGB CONC 35.6 g/dL (32.0-36.0); MEAN CORPUSCULAR VOLUME 91.8 fL (79-99); MONOCYTES % (AUTO) 7.8 % (3.0-13.0); NEUTROPHILS % (AUTO) 66.5 % (40.0-77.0); PLATELET COUNT (AUTO) 177 K/uL (130-400); RED CELL DISTRIBUTION WIDTH 15.1 % (11.0-15.5); WHITE BLOOD COUNT (AUTO) 5.6 K/uL (4.8-10.8)
[2017-11-02 15:21] LABS: ALBUMIN 3.7 g/dL (3.5-5.0); BILIRUBIN,TOTAL 0.6 mg/dL (0.2-1.0); POTASSIUM 3.4 mmol/L (3.5-5.1); TOTAL PROTEIN, SERUM 7.1 g/dL (6.0-8.3)
[2017-11-02 15:22] LABS: CREATININE 10.4 mg/dL (0.5-1.5)
[2017-11-02] MEDS ORDERED: PROMETHAZINE HCL 25 MG/ML 1ML AMPULE IM ONE (15:28)
[2017-11-02] MEDS ORDERED: SODIUM CHLORIDE 0.9% 500ML 500 ML IV ONE (15:29)
== END 2017-11-02 16:48 | disposition home or self-care (01) ==
LOC: EDH 14:28
DX: E86.0 Dehydration (principal); G89.29 Other chronic pain; R10.9 Unspecified abdominal pain; R63.4 Abnormal weight loss; E11.22 Type 2 diabetes mellitus with diabetic chronic kidney disease; I12.0 Hypertensive chronic kidney disease with stage 5 chronic kidney disease or end stage renal disease; N18.6 End stage renal disease; Z99.2 Dependence on renal dialysis; Z79.4 Long term (current) use of insulin; Z88.0 Allergy status to penicillin; Z72.0 Tobacco use
CPT/HCPCS: 29105; 36415; 80053; 83690; 85025; 96372; 96374; 96375; J2270; J2550; J7040

== ENCOUNTER → 2017-11-24 | Outpatient (CLI) | payer MEDICARE ==
[~2017-11-24] MED LIST changes: +DIATR MEGLU/DIATRIZOATE SODIUM 30 ML BOTTLE ONE
== END | disposition home or self-care (01) ==
LOC: RAH 08:45
PROVIDERS: ATTEND Internal Medicine
DX: K21.9 Gastro-esophageal reflux disease without esophagitis (principal); Z98.84 Bariatric surgery status; Z98.890 Other specified postprocedural states
CPT/HCPCS: 74245; Q9963

== ENCOUNTER 2020-10-19 12:04 | Emergency (ER) | payer MEDICARE ==
[~2020-10-19 12:04] MED LIST changes: -DIATR MEGLU/DIATRIZOATE SODIUM 30 ML BOTTLE ONE; -PANT40TA25 PO; +PANT40TA55 PO
[2020-10-19 13:08] LABS: CREATININE 7.7 mg/dL (0.5-1.5); POTASSIUM 4.2 mmol/L (3.5-5.1)
[2020-10-19 13:12] LABS: ALBUMIN 2.7 g/dL (3.5-5.0); BILIRUBIN,TOTAL 0.8 mg/dL (0.2-1.0); TOTAL PROTEIN, SERUM 6.4 g/dL (6.0-8.3)
[2020-10-19 13:17] LABS: BASOPHILS % (AUTO) 0.8 % (0.0-5.0); EOSINOPHILS % (AUTO) 3.8 % (0.0-8.0); HEMATOCRIT 41.5 % (42-54); LYMPHOCYTES % (AUTO) 15.6 % (21.0-51.0); MEAN CORPUSCULAR VOLUME 93.5 fL (79-99); MONOCYTES % (AUTO) 10.1 % (3.0-13.0); NEUTROPHILS % (AUTO) 69.5 % (40.0-77.0); PLATELET COUNT (AUTO) 181 K/uL (130-400); RED BLOOD CELL COUNT(AUTO) 4.44 MIL/uL (4.50-6.20); RED CELL DISTRIBUTION WIDTH 14.7 % (11.0-15.5); WHITE BLOOD COUNT (AUTO) 5.1 K/uL (4.8-10.8)
[2020-10-19] MEDS ORDERED: ONDANSETRON HCL 4 MG/2 ML VIAL ONE (13:30)
[2020-10-19] MEDS ORDERED: MORPHINE SULFATE 2 MG/ML 1ML SYG ONE (13:30)
[2020-10-19] MEDS ORDERED: ALBUMIN (HUMAN) 25% 200 ML IV ONE (13:36)
[2020-10-19 13:38] LABS: PROTHROMBIN TIME 10.9 SEC (9.6-11.6)
[2020-10-19 13:39] LABS: PARTIAL THROMBOPLASTIN TIME 27.2 SEC (26.3-35.5)
[2020-10-19 13:40] LABS: B-TYPE NATRIURETIC PEPTIDE 323 pg/mL (0-100)
[2020-10-19 15:50] LABS: APPEARANCE BODY FLUID CLEAR (CLEAR); COLOR,BODY FLUID YELLOW (LT YELLOW); SPECIMENTYPE,BODY FLUID ASCITES; TOTAL VOLUME,BODY FLUID 15000 mL
[2020-10-19 15:51] LABS: BODY FLUID RBC 10 /cu. mm.; BODY FLUID WBC 170 /cu. mm.
[2020-10-19 15:56] LABS: BF LYMPHOCYTE 4 %; BF MESOTHELIAL 95 %
== END 2020-10-19 16:52 | disposition home or self-care (01) ==
LOC: EDH 12:04
DX: R18.8 Other ascites (principal); G89.29 Other chronic pain; I12.0 Hypertensive chronic kidney disease with stage 5 chronic kidney disease or end stage renal disease; E11.22 Type 2 diabetes mellitus with diabetic chronic kidney disease; N18.6 End stage renal disease; Z87.891 Personal history of nicotine dependence; Z88.0 Allergy status to penicillin
CPT/HCPCS: 36415; 49083; 71045; 74176; 80053; 82150; 82550; 83605 ×2; 83690; 83880; 84145; 84484; 85025; 85610; 85730; 87040; 87071; 87205; 89051; 93005; 96365; 96374; 96375; 99285; A4215; J2405; P9046

== ENCOUNTER 2020-11-05 05:59 | Observation (INO) | payer MEDICARE ==
[2020-11-05 06:53] LABS: BASOPHILS % (AUTO) 0.8 % (0.0-5.0); EOSINOPHILS % (AUTO) 2.5 % (0.0-8.0); HEMATOCRIT 36.1 % (42-54); LYMPHOCYTES % (AUTO) 11.9 % (21.0-51.0); MEAN CORPUSCULAR HEMOGLOBIN 29.8 pg (27.0-33.0); MEAN CORPUSCULAR HGB CONC 32.4 g/dL (32.0-36.0); MEAN CORPUSCULAR VOLUME 91.9 fL (79-99); MONOCYTES % (AUTO) 10.3 % (3.0-13.0); NEUTROPHILS % (AUTO) 74.2 % (40.0-77.0); PLATELET COUNT (AUTO) 155 K/uL (130-400); RED BLOOD CELL COUNT(AUTO) 3.93 MIL/uL (4.50-6.20); RED CELL DISTRIBUTION WIDTH 14.9 % (11.0-15.5); WHITE BLOOD COUNT (AUTO) 6.3 K/uL (4.8-10.8)
[2020-11-05 07:01] LABS: INR 0.97 (0.85-1.15); PROTHROMBIN TIME 10.6 SEC (9.6-11.6)
[2020-11-05 07:02] LABS: PARTIAL THROMBOPLASTIN TIME 23.4 SEC (26.3-35.5)
[2020-11-05 07:24] LABS: ALBUMIN 2.8 g/dL (3.5-5.0); BILIRUBIN,TOTAL 0.5 mg/dL (0.2-1.0); TOTAL PROTEIN, SERUM 6.7 g/dL (6.0-8.3)
[2020-11-05 07:26] LABS: POTASSIUM 4.2 mmol/L (3.5-5.1)
[2020-11-05 07:28] LABS: CREATININE 8.5 mg/dL (0.5-1.5)
[2020-11-05 07:29] LABS: B-TYPE NATRIURETIC PEPTIDE 331 pg/mL (0-100)
[2020-11-05] MEDS ORDERED: FUROSEMIDE 20MG VIAL (10MG/ML) IV SCH (07:45)
[2020-11-05] MEDS ORDERED: ONDANSETRON HCL 4 MG/2 ML VIAL IVP PRN (07:45)
[2020-11-05] MEDS ORDERED: ACETAMINOPHEN 325 MG TAB PO PRN ×2 (07:45→09:30)
[2020-11-05] MEDS ORDERED: HEPARIN SODIUM 5000UNIT/ML 1ML VIAL SQ SCH (07:45)
[2020-11-05] MEDS ORDERED: FAMOTIDINE 20MG TAB 20 MG TAB PO SCH (09:00)
[2020-11-05] MEDS ORDERED: HYDROCODONE/ACETAMINOPHEN 5/325 MG TAB ONE ×2 (09:30→13:26)
[2020-11-05] MEDS ORDERED: HYDROCODONE/ACETAMINOPHEN 5/325 MG TAB PO PRN (09:30)
[2020-11-05] MEDS ORDERED: FUROSEMIDE 20MG VIAL (10MG/ML) ONE (10:12)
[2020-11-05] MEDS ORDERED: ALBUMIN (HUMAN) 25% 200 ML IV ONE (16:00)
[2020-11-05 18:16] LABS: SPECIMENTYPE,BODY FLUID ASCITES
[2020-11-05 18:17] LABS: APPEARANCE BODY FLUID CLEAR (CLEAR); BODY FLUID WBC 158 /cu. mm.; COLOR,BODY FLUID YELLOW (LT YELLOW); TOTAL VOLUME,BODY FLUID 11000 mL
[2020-11-05 18:18] LABS: BODY FLUID RBC 26 /cu. mm.
[2020-11-05 18:51] LABS: BF LYMPHOCYTE 34 %; BF MONOCYTE 1 %; BF OTHER CELLS 6
[2020-11-05] MEDS ORDERED: FAMOTIDINE/PF 20 MG/2 ML VIAL IV ONE (21:14)
[2020-11-05] MEDS ORDERED: HEPARIN SODIUM 5000UNIT/ML 1ML VIAL ONE (21:14)
[2020-11-05] MEDS ORDERED: HYDROMORPHONE 0.5 MG SYG (0.5MG/0.5ML) ONE (21:40)
[2020-11-05] MEDS ORDERED: HYDROMORPHONE 0.5 MG SYG (0.5MG/0.5ML) IVP SCH (21:45)
[2020-11-06] MEDS ORDERED: OCTYL 2-CYANOACRYLATE 1 EACH TP ONE (01:20)
[2020-11-06 05:52] LABS: BASOPHILS % (AUTO) 0.8 % (0.0-5.0); EOSINOPHILS % (AUTO) 3.9 % (0.0-8.0); HEMATOCRIT 35.8 % (42-54); LYMPHOCYTES % (AUTO) 16.1 % (21.0-51.0); MEAN CORPUSCULAR HEMOGLOBIN 30.6 pg (27.0-33.0); MEAN CORPUSCULAR HGB CONC 33.8 g/dL (32.0-36.0); MEAN CORPUSCULAR VOLUME 90.4 fL (79-99); NEUTROPHILS % (AUTO) 68.8 % (40.0-77.0); PLATELET COUNT (AUTO) 151 K/uL (130-400); RED BLOOD CELL COUNT(AUTO) 3.96 MIL/uL (4.50-6.20); RED CELL DISTRIBUTION WIDTH 14.6 % (11.0-15.5); WHITE BLOOD COUNT (AUTO) 5.1 K/uL (4.8-10.8)
[2020-11-06 06:08] LABS: ALBUMIN 2.2 g/dL (3.5-5.0); BILIRUBIN,TOTAL 0.5 mg/dL (0.2-1.0); CREATININE 7.4 mg/dL (0.5-1.5); PHOSPHORUS 5.9 mg/dL (2.5-4.9); POTASSIUM 4.2 mmol/L (3.5-5.1); TOTAL PROTEIN, SERUM 5.7 g/dL (6.0-8.3)
[2020-11-06] MEDS ORDERED: HEPARIN SODIUM 5000UNIT/ML 1ML VIAL ONE (08:55)
[2020-11-06] MEDS ORDERED: FAMOTIDINE 20MG TAB 20 MG TAB ONE (08:55)
[2020-11-06] MEDS ORDERED: HYDROCODONE/ACETAMINOPHEN 5/325 MG TAB ONE (09:21)
== END 2020-11-06 12:23 | disposition home or self-care (01) ==
LOC: EDH 05:59 → EDHIP 07:05
PROVIDERS: ADMIT Internal Medicine; ATTEND Internal Medicine
DX: J96.90 Respiratory failure, unspecified, unspecified whether with hypoxia or hypercapnia (principal); R18.8 Other ascites; E87.70 Fluid overload, unspecified; I12.0 Hypertensive chronic kidney disease with stage 5 chronic kidney disease or end stage renal disease; E11.22 Type 2 diabetes mellitus with diabetic chronic kidney disease; N18.6 End stage renal disease; K74.60 Unspecified cirrhosis of liver; Z99.2 Dependence on renal dialysis; Z91.15 Patient's noncompliance with renal dialysis; Z90.49 Acquired absence of other specified parts of digestive tract; Z91.048 Other nonmedicinal substance allergy status; Z98.84 Bariatric surgery status; Z79.4 Long term (current) use of insulin; Z79.899 Other long term (current) drug therapy; Z88.0 Allergy status to penicillin
CPT/HCPCS: 36415 ×2; 49083; 71045; 80053 ×2; 83880; 84100; 84484; 85025 ×2; 85610; 85730; 87071; 87205; 88112; 88305; 89051; 93005; 99285; A4215; G0378 ×28; J1170; J1644 ×2; J1940; J3490; 90935

== ENCOUNTER 2020-11-26 12:35 | Emergency (ER) | payer MEDICARE ==
[2020-11-26 14:17] LABS: BASOPHILS % (AUTO) 0.9 % (0.0-5.0); EOSINOPHILS % (AUTO) 3.8 % (0.0-8.0); HEMATOCRIT 33.5 % (42-54); LYMPHOCYTES % (AUTO) 11.2 % (21.0-51.0); MEAN CORPUSCULAR HEMOGLOBIN 30.5 pg (27.0-33.0); MEAN CORPUSCULAR HGB CONC 32.8 g/dL (32.0-36.0); MEAN CORPUSCULAR VOLUME 92.8 fL (79-99); MONOCYTES % (AUTO) 11.9 % (3.0-13.0); NEUTROPHILS % (AUTO) 71.7 % (40.0-77.0); PLATELET COUNT (AUTO) 182 K/uL (130-400); RED BLOOD CELL COUNT(AUTO) 3.61 MIL/uL (4.50-6.20); RED CELL DISTRIBUTION WIDTH 14.4 % (11.0-15.5); WHITE BLOOD COUNT (AUTO) 5.8 K/uL (4.8-10.8)
[2020-11-26 14:29] LABS: INR 0.97 (0.85-1.15); PROTHROMBIN TIME 10.6 SEC (9.6-11.6)
[2020-11-26 14:30] LABS: PARTIAL THROMBOPLASTIN TIME 26.2 SEC (26.3-35.5)
[2020-11-26 14:40] LABS: ALBUMIN 2.3 g/dL (3.5-5.0); BILIRUBIN,TOTAL 0.3 mg/dL (0.2-1.0); POTASSIUM 4.3 mmol/L (3.5-5.1)
[2020-11-26 14:42] LABS: CREATININE 9.6 mg/dL (0.5-1.5)
[2020-11-26] MEDS ORDERED: ALBUMIN (HUMAN) 25% 100 ML IV ONE ×2 (14:43)
[2020-11-26] MEDS ORDERED: MORPHINE SULFATE 2 MG/ML 1ML SYG ONE (16:08)
== END 2020-11-26 19:46 | disposition home or self-care (01) ==
LOC: EDH 12:35
DX: R18.8 Other ascites (principal); K74.69 Other cirrhosis of liver; I12.0 Hypertensive chronic kidney disease with stage 5 chronic kidney disease or end stage renal disease; E11.22 Type 2 diabetes mellitus with diabetic chronic kidney disease; N18.6 End stage renal disease; Z88.0 Allergy status to penicillin; Z99.2 Dependence on renal dialysis
CPT/HCPCS: 36415; 49083; 80053; 85025; 85610; 85730; 96365; 96375; 99285; A4215; P9046; P9047

== ENCOUNTER 2020-12-10 06:12 | Emergency (ER) | payer MEDICARE ==
[2020-12-10 06:54] LABS: BASOPHILS % (AUTO) 0.8 % (0.0-5.0); EOSINOPHILS % (AUTO) 7.2 % (0.0-8.0); HEMATOCRIT 33.3 % (42-54); LYMPHOCYTES % (AUTO) 12.6 % (21.0-51.0); MEAN CORPUSCULAR HEMOGLOBIN 30.4 pg (27.0-33.0); MONOCYTES % (AUTO) 9.9 % (3.0-13.0); NEUTROPHILS % (AUTO) 69.3 % (40.0-77.0); PLATELET COUNT (AUTO) 206 K/uL (130-400); RED BLOOD CELL COUNT(AUTO) 3.62 MIL/uL (4.50-6.20); RED CELL DISTRIBUTION WIDTH 14.5 % (11.0-15.5); WHITE BLOOD COUNT (AUTO) 6.3 K/uL (4.8-10.8)
[2020-12-10 07:09] LABS: ALBUMIN 2.4 g/dL (3.5-5.0); POTASSIUM 5.9 mmol/L (3.5-5.1)
[2020-12-10 07:11] LABS: BILIRUBIN,TOTAL 0.5 mg/dL (0.2-1.0); TOTAL PROTEIN, SERUM 6.2 g/dL (6.0-8.3)
[2020-12-10 07:15] LABS: CREATININE 10.2 mg/dL (0.5-1.5)
[2020-12-10 07:24] LABS: INR 0.97 (0.85-1.15); PROTHROMBIN TIME 10.6 SEC (9.6-11.6)
[2020-12-10 07:25] LABS: PARTIAL THROMBOPLASTIN TIME 27.4 SEC (26.3-35.5)
[2020-12-10] MEDS ORDERED: HYDROCODONE/ACETAMINOPHEN 5/325 MG TAB ONE (07:29)
[2020-12-10] MEDS ORDERED: ALBUMIN (HUMAN) 25% 200 ML IV ONE ×2 (09:00→09:28)
[2020-12-10 13:20] LABS: APPEARANCE BODY FLUID CLEAR (CLEAR); BODY FLUID RBC 6 /cu. mm.; BODY FLUID WBC 242 /cu. mm.; COLOR,BODY FLUID YELLOW (LT YELLOW); SPECIMENTYPE,BODY FLUID ASCITES; TOTAL VOLUME,BODY FLUID 9600 mL
[2020-12-10 13:23] LABS: BF BASOPHIL 1 %; BF LYMPHOCYTE 38 %; BF MESOTHELIAL 59 %; BF MONOCYTE 1 %
== END 2020-12-10 10:52 | disposition home or self-care (01) ==
LOC: EDH 06:12
DX: K70.31 Alcoholic cirrhosis of liver with ascites (principal); I12.0 Hypertensive chronic kidney disease with stage 5 chronic kidney disease or end stage renal disease; E11.22 Type 2 diabetes mellitus with diabetic chronic kidney disease; N18.6 End stage renal disease; Z99.2 Dependence on renal dialysis; Z88.0 Allergy status to penicillin; Z87.891 Personal history of nicotine dependence; Z90.49 Acquired absence of other specified parts of digestive tract; Z98.890 Other specified postprocedural states
CPT/HCPCS: 36415; 49083; 80053; 85025; 85610; 85730; 87071; 87205; 89051; 96365; 99285; A4215; P9046

== ENCOUNTER 2020-12-24 06:25 | Emergency (ER) | payer MEDICARE ==
[~2020-12-24] VITALS: Ht 182.9 cm; Wt 99.8 kg
[2020-12-24 06:59] VITALS: BP 142/91
[2020-12-24 07:37] VITALS: BP 147/100
[2020-12-24 09:22] LABS: BASOPHILS % (AUTO) 0.7 % (0.0-5.0); EOSINOPHILS % (AUTO) 7.7 % (0.0-8.0); HEMATOCRIT 34.1 % (42-54); LYMPHOCYTES % (AUTO) 12.7 % (21.0-51.0); MEAN CORPUSCULAR HEMOGLOBIN 29.8 pg (27.0-33.0); MEAN CORPUSCULAR HGB CONC 32.6 g/dL (32.0-36.0); MEAN CORPUSCULAR VOLUME 91.7 fL (79-99); NEUTROPHILS % (AUTO) 67.3 % (40.0-77.0); PLATELET COUNT (AUTO) 177 K/uL (130-400); RED BLOOD CELL COUNT(AUTO) 3.72 MIL/uL (4.50-6.20); RED CELL DISTRIBUTION WIDTH 14.6 % (11.0-15.5); WHITE BLOOD COUNT (AUTO) 6.9 K/uL (4.8-10.8)
[2020-12-24 09:34] LABS: INR 0.95 (0.85-1.15); PROTHROMBIN TIME 10.4 SEC (9.6-11.6)
[2020-12-24 09:37] LABS: ALBUMIN 2.3 g/dL (3.5-5.0); BILIRUBIN,TOTAL 0.4 mg/dL (0.2-1.0); POTASSIUM 4.8 mmol/L (3.5-5.1)
[2020-12-24 09:46] LABS: CREATININE 9.9 mg/dL (0.5-1.5)
[2020-12-24 09:55] LABS: PARTIAL THROMBOPLASTIN TIME 19.4 SEC (26.3-35.5)
[2020-12-24] MEDS ORDERED: ACETAMINOPHEN 500 MG TABLET PO SCH (10:00)
[2020-12-24] MEDS ORDERED: ALBUMIN (HUMAN) 25% 200 ML IV ONE (11:23)
[2020-12-24 13:24] VITALS: BP 147/98
[2020-12-24 18:21] LABS: SPECIMENTYPE,BODY FLUID ASCITES
[2020-12-24 18:22] LABS: APPEARANCE BODY FLUID SLIGHTLY CLOUDY (CLEAR); BODY FLUID WBC 53 /cu. mm.; COLOR,BODY FLUID YELLOW (LT YELLOW); TOTAL VOLUME,BODY FLUID 900 mL
[2020-12-24 18:23] LABS: BODY FLUID RBC 12 /cu. mm.
[2020-12-24 18:46] LABS: BF LYMPHOCYTE 66 %; BF MESOTHELIAL 3 %
== END 2020-12-24 14:57 | disposition home or self-care (01) ==
LOC: EDH 06:44
DX: R18.8 Other ascites (principal); Z88.0 Allergy status to penicillin; Z88.8 Allergy status to other drugs, medicaments and biological substances; Z79.899 Other long term (current) drug therapy; Z98.890 Other specified postprocedural states
CPT/HCPCS: 36415; 49083; 72040; 80053; 83690; 85025; 85610; 85730; 87071; 87205; 89051; 96365; 99285; A4215; P9046

== ENCOUNTER 2021-01-04 08:26 | Emergency (ER) | payer MEDICARE ==
[~2021-01-04] VITALS: Ht 182.9 cm; Wt 95.3 kg
[2021-01-04 08:31] VITALS: BP 139/83
[2021-01-04 09:52] VITALS: BP 145/98
[2021-01-04 09:53] LABS: BASOPHILS % (AUTO) 0.3 % (0.0-5.0); EOSINOPHILS % (AUTO) 0.9 % (0.0-8.0); HEMATOCRIT 38.5 % (42-54); LYMPHOCYTES % (AUTO) 9.3 % (21.0-51.0); MEAN CORPUSCULAR HEMOGLOBIN 28.8 pg (27.0-33.0); MEAN CORPUSCULAR HGB CONC 32.2 g/dL (32.0-36.0); MEAN CORPUSCULAR VOLUME 89.3 fL (79-99); MONOCYTES % (AUTO) 7.3 % (3.0-13.0); PLATELET COUNT (AUTO) 228 K/uL (130-400); RED BLOOD CELL COUNT(AUTO) 4.31 MIL/uL (4.50-6.20); RED CELL DISTRIBUTION WIDTH 14.7 % (11.0-15.5); WHITE BLOOD COUNT (AUTO) 9.2 K/uL (4.8-10.8)
[2021-01-04 10:03] LABS: CREATININE 7.6 mg/dL (0.5-1.5); POTASSIUM 3.6 mmol/L (3.5-5.1)
[2021-01-04 10:07] LABS: ALBUMIN 2.9 g/dL (3.5-5.0); BILIRUBIN,TOTAL 0.5 mg/dL (0.2-1.0); TOTAL PROTEIN, SERUM 6.9 g/dL (6.0-8.3)
[2021-01-04 10:08] LABS: INR 0.99 (0.85-1.15); PROTHROMBIN TIME 10.8 SEC (9.6-11.6)
[2021-01-04 10:10] LABS: PARTIAL THROMBOPLASTIN TIME 27.3 SEC (26.3-35.5)
[2021-01-04] MEDS ORDERED: ALBUMIN (HUMAN) 25% 200 ML IV ONE (10:53)
[2021-01-04 12:25] VITALS: BP 156/65
[2021-01-04] MEDS ORDERED: ALBUMIN (HUMAN) 25% 100 ML IV ONE (12:29)
[2021-01-04 15:36] VITALS: BP 148/87
== END 2021-01-04 15:47 | disposition home or self-care (01) ==
LOC: EDH 08:26
DX: K70.31 Alcoholic cirrhosis of liver with ascites (principal); E88.09 Other disorders of plasma-protein metabolism, not elsewhere classified; Z88.0 Allergy status to penicillin; Z79.899 Other long term (current) drug therapy
CPT/HCPCS: 36415; 49083; 80053; 85025; 85610; 85730; 96365; 96366; 99285; A4215; P9046 ×2

== ENCOUNTER 2021-01-15 07:03 | Emergency (ER) | payer MEDICARE ==
[~2021-01-15] VITALS: Ht 182.9 cm; Wt 85.7 kg
[2021-01-15 07:04] VITALS: BP 115/71
[2021-01-15 10:14] VITALS: BP 121/54
[2021-01-15] MEDS ORDERED: MORPHINE 4 MG SYG IM SCH (11:00)
[2021-01-15 11:16] LABS: BASOPHILS % (AUTO) 0.4 % (0.0-5.0); HEMATOCRIT 43.1 % (42-54); LYMPHOCYTES % (AUTO) 9.5 % (21.0-51.0); MEAN CORPUSCULAR HGB CONC 32.3 g/dL (32.0-36.0); MONOCYTES % (AUTO) 6.9 % (3.0-13.0); NEUTROPHILS % (AUTO) 80.9 % (40.0-77.0); PLATELET COUNT (AUTO) 300 K/uL (130-400); RED BLOOD CELL COUNT(AUTO) 4.79 MIL/uL (4.50-6.20); WHITE BLOOD COUNT (AUTO) 10.2 K/uL (4.8-10.8)
[2021-01-15 11:25] LABS: ALBUMIN 3.1 g/dL (3.5-5.0); POTASSIUM 3.9 mmol/L (3.5-5.1)
[2021-01-15 11:30] LABS: BILIRUBIN,TOTAL 0.5 mg/dL (0.2-1.0); TOTAL PROTEIN, SERUM 6.9 g/dL (6.0-8.3)
[2021-01-15 11:32] LABS: INR 0.98 (0.85-1.15); PROTHROMBIN TIME 10.7 SEC (9.6-11.6)
[2021-01-15 11:33] LABS: PARTIAL THROMBOPLASTIN TIME 25.9 SEC (26.3-35.5)
[2021-01-15 11:36] LABS: CREATININE 12.2 mg/dL (0.5-1.5)
[2021-01-15] MEDS ORDERED: ALBUMIN (HUMAN) 25% 200 ML IV ONE (13:43)
[2021-01-15] MEDS ORDERED: MORPHINE 4 MG SYG IV ONE (15:30)
[2021-01-15 15:55] VITALS: BP 136/62
[2021-01-15 18:15] LABS: APPEARANCE BODY FLUID CLEAR (CLEAR); COLOR,BODY FLUID YELLOW (LT YELLOW); SPECIMENTYPE,BODY FLUID ASCITES
[2021-01-15 18:16] LABS: BODY FLUID WBC 131 /cu. mm.; TOTAL VOLUME,BODY FLUID 14500 mL
[2021-01-15 18:17] LABS: BODY FLUID RBC 37 /cu. mm.
[2021-01-15 18:28] LABS: BF LYMPHOCYTE 16 %; BF MONOCYTE 1 %
== END 2021-01-15 15:58 | disposition home or self-care (01) ==
LOC: EDH 07:03
DX: R18.8 Other ascites (principal); I12.0 Hypertensive chronic kidney disease with stage 5 chronic kidney disease or end stage renal disease; E11.22 Type 2 diabetes mellitus with diabetic chronic kidney disease; N18.6 End stage renal disease; Z88.0 Allergy status to penicillin; Z79.899 Other long term (current) drug therapy
CPT/HCPCS: 36415; 49083; 80053; 82150; 83690; 85025; 85610; 85730; 87071; 87205; 89051; 96365; 96372; 96375; 99285; A4215; J2270 ×2; P9046

== ENCOUNTER 2021-02-04 07:47 | Emergency (ER) | payer MEDICARE ==
[~2021-02-04] VITALS: Ht 182.9 cm; Wt 81.6 kg
[2021-02-04 08:35] VITALS: BP 124/83
[2021-02-04 08:53] LABS: BASOPHILS % (AUTO) 0.5 % (0.0-5.0); EOSINOPHILS % (AUTO) 2.4 % (0.0-8.0); HEMATOCRIT 35.9 % (42-54); LYMPHOCYTES % (AUTO) 8.2 % (21.0-51.0); MEAN CORPUSCULAR HEMOGLOBIN 29.2 pg (27.0-33.0); MEAN CORPUSCULAR HGB CONC 32.3 g/dL (32.0-36.0); MEAN CORPUSCULAR VOLUME 90.4 fL (79-99); MONOCYTES % (AUTO) 6.9 % (3.0-13.0); NEUTROPHILS % (AUTO) 81.7 % (40.0-77.0); PLATELET COUNT (AUTO) 226 K/uL (130-400); RED BLOOD CELL COUNT(AUTO) 3.97 MIL/uL (4.50-6.20); RED CELL DISTRIBUTION WIDTH 14.8 % (11.0-15.5); WHITE BLOOD COUNT (AUTO) 9.2 K/uL (4.8-10.8)
[2021-02-04 09:01] LABS: ALBUMIN 2.4 g/dL (3.5-5.0); POTASSIUM 3.7 mmol/L (3.5-5.1)
[2021-02-04 09:05] LABS: BILIRUBIN,TOTAL 0.5 mg/dL (0.2-1.0); CREATININE 9.2 mg/dL (0.5-1.5); TOTAL PROTEIN, SERUM 6.1 g/dL (6.0-8.3)
[2021-02-04 09:06] LABS: PROTHROMBIN TIME 10.9 SEC (9.6-11.6)
[2021-02-04 09:08] LABS: PARTIAL THROMBOPLASTIN TIME 27.7 SEC (26.3-35.5)
[2021-02-04] MEDS ORDERED: HYDROCODONE/ACETAMINOPHEN 5/325 MG TAB PO SCH (10:30)
[2021-02-04 13:23] VITALS: BP 122/73
== END 2021-02-04 14:25 | disposition home or self-care (01) ==
LOC: EDH 07:47
DX: R18.8 Other ascites (principal); E87.70 Fluid overload, unspecified; M54.2 Cervicalgia; Z88.0 Allergy status to penicillin; Z79.899 Other long term (current) drug therapy
CPT/HCPCS: 36415; 49083; 80053; 85025; 85610; 85730; 96365; 99285; A4215

== ENCOUNTER 2021-02-18 07:41 | Emergency (ER) | payer MEDICARE ==
[~2021-02-18] VITALS: Ht 182.9 cm; Wt 81.6 kg
[2021-02-18 07:45] VITALS: BP 115/81
[2021-02-18] MEDS ORDERED: ONDANSETRON 4MG INJ ONE (08:54)
[2021-02-18] MEDS ORDERED: MORPHINE 4 MG SYG ONE (08:55)
[2021-02-18] MEDS ORDERED: MORPHINE 4 MG SYG IV SCH (09:00)
[2021-02-18] MEDS ORDERED: ONDANSETRON 4MG INJ IVP SCH (09:00)
[2021-02-18 09:02] LABS: BASOPHILS % (AUTO) 0.2 % (0.0-5.0); EOSINOPHILS % (AUTO) 1.5 % (0.0-8.0); HEMATOCRIT 30.7 % (42-54); LYMPHOCYTES % (AUTO) 7.6 % (21.0-51.0); MEAN CORPUSCULAR HEMOGLOBIN 29.6 pg (27.0-33.0); MEAN CORPUSCULAR HGB CONC 33.6 g/dL (32.0-36.0); MEAN CORPUSCULAR VOLUME 88.2 fL (79-99); PLATELET COUNT (AUTO) 289 K/uL (130-400); RED BLOOD CELL COUNT(AUTO) 3.48 MIL/uL (4.50-6.20); RED CELL DISTRIBUTION WIDTH 15.1 % (11.0-15.5); WHITE BLOOD COUNT (AUTO) 9.8 K/uL (4.8-10.8)
[2021-02-18 09:15] LABS: ALBUMIN 2.4 g/dL (3.5-5.0); BILIRUBIN,TOTAL 0.5 mg/dL (0.2-1.0); TOTAL PROTEIN, SERUM 6.4 g/dL (6.0-8.3)
[2021-02-18 09:18] LABS: POTASSIUM 4.8 mmol/L (3.5-5.1)
[2021-02-18 09:19] LABS: CREATININE 10.2 mg/dL (0.5-1.5)
[2021-02-18 10:08] VITALS: BP 124/100
[2021-02-18] MEDS ORDERED: ALBUMIN (HUMAN) 25% 200 ML IV ONE (12:35)
[2021-03-03] MEDS ORDERED: LINE600T11 PO (12:40)
== END 2021-02-18 16:26 | disposition home or self-care (01) ==
LOC: EDH 07:41
DX: R18.8 Other ascites (principal); N18.6 End stage renal disease; E88.09 Other disorders of plasma-protein metabolism, not elsewhere classified; Z79.899 Other long term (current) drug therapy; Z88.0 Allergy status to penicillin
CPT/HCPCS: 36415; 49083; 80053; 82150; 83690; 85025; 96365; 96375; 99285; C1729; J2270 ×2; J2405; P9046

== ENCOUNTER 2021-03-12 11:44 | Inpatient (IN) | payer MEDICARE ==
[~2021-03-12] VITALS: Ht 182.9 cm; Wt 84.3 kg
[~2021-03-12 11:44] MED LIST changes: +LINE600T11 PO; -METO5 PO; -PANT40TA55 PO
[2021-03-12 12:29] VITALS: BP 104/85
[2021-03-12] MEDS ORDERED: ONDANSETRON 4MG INJ ONE (13:23)
[2021-03-12] MEDS ORDERED: MORPHINE 4 MG SYG ONE (13:23)
[2021-03-12] MEDS ORDERED: ONDANSETRON 4MG INJ IVP ONE (13:30)
[2021-03-12] MEDS ORDERED: MORPHINE 4 MG SYG IV ONE (13:30)
[2021-03-12 14:30] LABS: BASOPHILS % (AUTO) 0.2 % (0.0-5.0); EOSINOPHILS % (AUTO) 1.5 % (0.0-8.0); HEMATOCRIT 25.3 % (42-54); LYMPHOCYTES % (AUTO) 5.3 % (21.0-51.0); MEAN CORPUSCULAR HEMOGLOBIN 29.7 pg (27.0-33.0); MEAN CORPUSCULAR VOLUME 87.2 fL (79-99); MONOCYTES % (AUTO) 4.2 % (3.0-13.0); NEUTROPHILS % (AUTO) 88.4 % (40.0-77.0); PLATELET COUNT (AUTO) 170 K/uL (130-400); WHITE BLOOD COUNT (AUTO) 11.3 K/uL (4.8-10.8)
[2021-03-12] MEDS ORDERED: HYDROMORPHONE 0.5 MG SYG (0.5MG/0.5ML) IVP ONE (14:30)
[2021-03-12 14:47] LABS: ALBUMIN 2.4 g/dL (3.5-5.0); POTASSIUM 5.6 mmol/L (3.5-5.1); TOTAL PROTEIN, SERUM 6.1 g/dL (6.0-8.3)
[2021-03-12 15:13] LABS: CREATININE 13.4 mg/dL (0.5-1.5)
[2021-03-12] MEDS ORDERED: GLUCAGON 1MG KIT 1 MG ML IM PRN (18:00)
[2021-03-12] MEDS ORDERED: ONDANSETRON 4MG INJ IVP PRN (18:00)
[2021-03-12] MEDS: HYDROMORPHONE 1 MG INJ IVP PRN ×2 (18:02→22:40)
[2021-03-12 18:03] VITALS: BP 110/87
[2021-03-12 20:03] VITALS: BP 117/76
[2021-03-12] MEDS: INSULIN R PO SS1 SQ SCH (20:36)
[2021-03-12] MEDS: ACETAMINOPHEN 325 MG TAB PO PRN (22:48)
[2021-03-12 23:04] VITALS: BP 114/72
[2021-03-13] MEDS: HYDROMORPHONE 1 MG INJ IVP PRN ×7 (01:50→21:01)
[2021-03-13 01:51] VITALS: BP 127/67
[2021-03-13] MEDS: ACETAMINOPHEN 325 MG TAB PO PRN (01:51)
[2021-03-13 04:33] VITALS: BP 132/73
[2021-03-13 06:28] VITALS: BP 149/69
[2021-03-13] MEDS: INSULIN R PO SS1 SQ SCH ×4 (07:30→21:00)
[2021-03-13 08:26] LABS: BASOPHILS % (AUTO) 0.2 % (0.0-5.0); EOSINOPHILS % (AUTO) 0.7 % (0.0-8.0); HEMATOCRIT 27.2 % (42-54); LYMPHOCYTES % (AUTO) 3.8 % (21.0-51.0); MEAN CORPUSCULAR HEMOGLOBIN 28.9 pg (27.0-33.0); MEAN CORPUSCULAR HGB CONC 32.4 g/dL (32.0-36.0); MEAN CORPUSCULAR VOLUME 89.2 fL (79-99); MONOCYTES % (AUTO) 5.4 % (3.0-13.0); NEUTROPHILS % (AUTO) 89.6 % (40.0-77.0); NUCLEATED RED BLOOD CELLS 0.2 % (0.0-0.19); PLATELET COUNT (AUTO) 151 K/uL (130-400); RED BLOOD CELL COUNT(AUTO) 3.05 MIL/uL (4.50-6.20); RED CELL DISTRIBUTION WIDTH 14.3 % (11.0-15.5); WHITE BLOOD COUNT (AUTO) 12.1 K/uL (4.8-10.8)
[2021-03-13 08:44] LABS: ALBUMIN 2.6 g/dL (3.5-5.0); PHOSPHORUS 10.8 mg/dL (2.5-4.9); TOTAL PROTEIN, SERUM 6.3 g/dL (6.0-8.3)
[2021-03-13] MEDS ORDERED: VANCOMYCIN PROTOCOL PER PHARMACY IV SCH (09:30)
[2021-03-13] MEDS: VANCOMYCIN 500MG+NS 100ML IVPB IV SCH (10:58)
[2021-03-13] MEDS: 0.9%NACL 100ML 100 ML IV SCH (10:58)
[2021-03-13] MEDS: PANTOPRAZOLE 40 MG/VIAL IVP SCH (10:58)
[2021-03-13] MEDS ORDERED: CALCIUM GLUC 1GM VIAL 1 GM in 0.9%NACL 100ML 100 ML IV SCH (12:00)
[2021-03-13] MEDS ORDERED: INSULIN HUMULIN R 100 UNIT/ML 3ML IJ SCH (12:00)
[2021-03-13] MEDS ORDERED: CALCIUM GLUC 1GM VIAL IV ONE (12:03)
[2021-03-13] MEDS ORDERED: KAYEXALATE 15GM/60ML ONE (12:03)
[2021-03-13] MEDS ORDERED: SODIUM BICARB 50MEQ 50ML VIAL 50 ML ONE (12:04)
[2021-03-13] MEDS ORDERED: DEXTROSE 50%-WATER 50 ML DISP.SYRIN IV SCH (13:12)
[2021-03-13] MEDS ORDERED: SODIUM BICARB 50MEQ 50ML VIAL IV SCH (13:16)
[2021-03-13] MEDS ORDERED: KAYEXALATE 15GM/60ML PO SCH (13:16)
[2021-03-13] MEDS ORDERED: ALBUTEROL 0.083% 2.5 MG/3 ML INH IH SCH (13:16)
[2021-03-13 15:01] LABS: ALBUMIN 2.7 g/dL (3.5-5.0); POTASSIUM 5.5 mmol/L (3.5-5.1); TOTAL PROTEIN, SERUM 6.5 g/dL (6.0-8.3)
[2021-03-13 15:03] LABS: CREATININE 14.4 mg/dL (0.5-1.5)
[2021-03-13 18:00] VITALS: BP 121/61
[2021-03-13 21:58] VITALS: BP 146/76
[2021-03-14] MEDS: HYDROMORPHONE 1 MG INJ IVP PRN ×5 (01:28→20:50)
[2021-03-14] MEDS: ACETAMINOPHEN 325 MG TAB PO PRN ×3 (03:26→16:44)
[2021-03-14 04:00] VITALS: BP 104/42
[2021-03-14] MEDS: INSULIN R PO SS1 SQ SCH ×4 (05:19→21:00)
[2021-03-14 06:07] LABS: HEMATOCRIT 24.8 % (42-54); MEAN CORPUSCULAR HEMOGLOBIN 29.1 pg (27.0-33.0); MEAN CORPUSCULAR HGB CONC 32.7 g/dL (32.0-36.0); MEAN CORPUSCULAR VOLUME 89.2 fL (79-99); NUCLEATED RED BLOOD CELLS 0.3 % (0.0-0.19); RED BLOOD CELL COUNT(AUTO) 2.78 MIL/uL (4.50-6.20); RED CELL DISTRIBUTION WIDTH 14.2 % (11.0-15.5); WHITE BLOOD COUNT (AUTO) 12.1 K/uL (4.8-10.8)
[2021-03-14 06:29] LABS: ALBUMIN 2.6 g/dL (3.5-5.0); BILIRUBIN,TOTAL 0.8 mg/dL (0.2-1.0); MAGNESIUM 2.4 mg/dL (1.80-2.40); PHOSPHORUS 11.6 mg/dL (2.5-4.9); POTASSIUM 5.6 mmol/L (3.5-5.1); TOTAL PROTEIN, SERUM 6.1 g/dL (6.0-8.3)
[2021-03-14 06:33] LABS: CREATININE 14.6 mg/dL (0.5-1.5)
[2021-03-14 08:03] VITALS: BP 96/41
[2021-03-14] MEDS: PANTOPRAZOLE 40 MG/VIAL IVP SCH (08:20)
[2021-03-14] MEDS ORDERED: KAYEXALATE 15GM/60ML PO SCH (09:00)
[2021-03-14] MEDS ORDERED: EPOETIN ALFA-EPBX (ESRD) 10,000 UNIT/ML VIAL SQ SCH (09:00)
[2021-03-14 11:30] VITALS: BP 98/44
[2021-03-14 15:59] VITALS: BP 98/55
[2021-03-14 19:49] VITALS: BP 96/56
[2021-03-14] MEDS ORDERED: ZOLPIDEM TARTRATE 5 MG TAB PO ONE (23:00)
[2021-03-14 23:26] VITALS: BP 89/41
[2021-03-15] VITALS (42 sets, daily range): BP systolic 63–127; BP diastolic 38–72
[2021-03-15] MEDS: HYDROMORPHONE 1 MG INJ IVP PRN ×2 (01:27→05:51)
[2021-03-15 05:33] LABS: HEMATOCRIT 23.3 % (42-54); MEAN CORPUSCULAR HGB CONC 32.6 g/dL (32.0-36.0); MEAN CORPUSCULAR VOLUME 88.9 fL (79-99); RED BLOOD CELL COUNT(AUTO) 2.62 MIL/uL (4.50-6.20); RED CELL DISTRIBUTION WIDTH 14.4 % (11.0-15.5); WHITE BLOOD COUNT (AUTO) 10.6 K/uL (4.8-10.8)
[2021-03-15 05:44] LABS: POTASSIUM 5.6 mmol/L (3.5-5.1)
[2021-03-15] MEDS: INSULIN R PO SS1 SQ SCH ×4 (06:31→21:00)
[2021-03-15] MEDS ORDERED: MIDODRINE HCL 5 MG TABLET PO SCH (07:30)
[2021-03-15] MEDS: VANCOMYCIN 500MG+NS 100ML IVPB IV SCH (09:30)
[2021-03-15] MEDS: PANTOPRAZOLE 40 MG/VIAL IVP SCH (11:39)
[2021-03-15] MEDS: MIDODRINE HCL 5 MG TABLET PO SCH ×3 (11:39→21:00)
[2021-03-15] MEDS: DEXTROSE 50%-WATER 50 ML DISP.SYRIN IV PRN (11:39)
[2021-03-15] MEDS ORDERED: CLINDAMYCIN 900MG/6ML INJ ONE (14:08)
[2021-03-15] MEDS ORDERED: TRANEXAMIC ACID 1000MG/10ML ONE (14:08)
[2021-03-15] MEDS ORDERED: BUPIVACAINE/PF 0.25% 30ML VIAL IJ ONE (14:08)
[2021-03-15] MEDS ORDERED: VANCOMYCIN 1G VIAL ONE ×2 (14:08→17:51)
[2021-03-15] MEDS ORDERED: TOBRAMYCIN SULFATE 40MG/1ML VIAL ONE (14:09)
[2021-03-15] MEDS ORDERED: KETAMINE 50MG/ML SYRINGE 50 MG/ML DISP.SYRIN IV ONE ×2 (14:24→15:50)
[2021-03-15] MEDS ORDERED: LIDOCAINE PF 100MG/5ML (2%) SYRINGE 5ML ONE (14:25)
[2021-03-15] MEDS ORDERED: PROPOFOL 10 MG/ML 20ML VIAL IV ONE (14:26)
[2021-03-15] MEDS ORDERED: MIDAZOLAM HCL 1 MG/ML 2ML VIAL ONE (14:26)
[2021-03-15] MEDS ORDERED: ONDANSETRON 4MG INJ ONE (14:27)
[2021-03-15] MEDS ORDERED: FENTANYL CITRATE PF 50 MCG/1 ML 2ML VIAL ONE ×4 (14:27→20:14)
[2021-03-15] MEDS ORDERED: ROCURONIUM 10MG/1ML SYR 10 MG/ML ML ONE ×3 (14:27→15:53)
[2021-03-15] MEDS ORDERED: THROMBIN-JMI 20000 UNIT KIT TP ONE (14:55)
[2021-03-15] MEDS: VANCOMYCIN KIT 1 GM/250 ML IV.KIT IV SCH ×2 (15:05→15:28)
[2021-03-15] MEDS ORDERED: SODIUM BICARB 8.4% 50ML SYRINGE ONE (15:08)
[2021-03-15 15:24] LABS: ABG BASE EXCESS 1.5 mmol/L (-2.0-3.0); ABG HCO3 27.4 mmol/L (21.0-28.0); ABG OXYGEN SATURATION 88.2 % (95.0-99.0); ABG PCO2 51 mmHg (35-48)
[2021-03-15] MEDS ORDERED: 0.9% NACL 250ML 250 ML IV SCH (15:30)
[2021-03-15] MEDS ORDERED: EPHEDRINE SULFATE 50 MG/ML AMPULE ONE (15:31)
[2021-03-15] MEDS ORDERED: ALBUMIN (HUMAN) 5% 250 ML IV ONE (15:34)
[2021-03-15] MEDS: 0.9%NACL 100ML 100 ML IV SCH (15:41)
[2021-03-15 15:46] LABS: MEAN CORPUSCULAR VOLUME 87.9 fL (79-99); NUCLEATED RED BLOOD CELLS 0.2 % (0.0-0.19); PLATELET COUNT (AUTO) 73 K/uL (130-400); RED BLOOD CELL COUNT(AUTO) 2.14 MIL/uL (4.50-6.20); RED CELL DISTRIBUTION WIDTH 14.2 % (11.0-15.5); WHITE BLOOD COUNT (AUTO) 10.6 K/uL (4.8-10.8)
[2021-03-15 15:49] LABS: HEMATOCRIT 18.8 % (42-54)
[2021-03-15 16:01] LABS: BILIRUBIN,TOTAL 0.6 mg/dL (0.2-1.0); POTASSIUM 4.2 mmol/L (3.5-5.1)
[2021-03-15 16:18] LABS: EOSINOPHILS % (MANUAL) 2 % (1-6); LYMPHOCYTES % (MANUAL) 7 % (22-44); MONOCYTES % (MANUAL) 5 % (2-9); SEGMENTED NEUTROPHILS % 86 % (40-70)
[2021-03-15 16:19] LABS: MAN.DIFF COMMENT-IMPRESSION MANUAL DIFFERENTIAL
[2021-03-15 16:24] LABS: CREATININE 9.5 mg/dL (0.5-1.5)
[2021-03-15] MEDS ORDERED: MEPERIDINE-PF 25 MG/ML SYG ONE (18:08)
[2021-03-15] MEDS ORDERED: GLYCOPYRROLATE 1 MG/5 ML SYRINGE ONE (18:10)
[2021-03-15] MEDS ORDERED: NEOSTIGMINE 5MG/5ML SYR IV ONE (18:10)
[2021-03-15 19:20] LABS: HEMATOCRIT 26.5 % (42-54)
[2021-03-16] MEDS: DEXTROSE 50%-WATER 50 ML DISP.SYRIN IV PRN ×2 (00:18→07:00)
[2021-03-16] MEDS: HYDROMORPHONE 1 MG INJ IVP PRN ×2 (01:15→16:46)
[2021-03-16 01:27] VITALS: BP 132/63
[2021-03-16 04:00] VITALS: BP 122/56
[2021-03-16] MEDS: INSULIN R PO SS1 SQ SCH ×4 (06:59→21:00)
[2021-03-16] MEDS: MIDODRINE HCL 5 MG TABLET PO SCH ×3 (08:32→20:28)
[2021-03-16] MEDS: PANTOPRAZOLE 40 MG/VIAL IVP SCH (10:25)
[2021-03-16 12:00] VITALS: BP 93/46
[2021-03-16] MEDS: ACETAMINOPHEN WITH CODEINE 1 TAB TAB PO PRN ×2 (12:35→20:45)
[2021-03-16 16:00] VITALS: BP 96/57
[2021-03-16] MEDS ORDERED: 0.9% NACL 250ML 250 ML IV SCH (16:00)
[2021-03-16] MEDS ORDERED: VANCOMYCIN 750MG VIAL IVPB SCH (16:00)
[2021-03-16 20:00] VITALS: BP 90/52
[2021-03-16] MEDS ORDERED: VANCOMYCIN 750MG VIAL IVPB ONE (20:00)
[2021-03-16] MEDS ORDERED: 0.9% NACL 250ML 250 ML IV ONE (20:00)
[2021-03-17] VITALS (8 sets, daily range): BP systolic 101–139; BP diastolic 58–79
[2021-03-17] MEDS: HYDROMORPHONE 1 MG INJ IVP PRN ×5 (00:08→20:07)
[2021-03-17] MEDS: INSULIN R PO SS1 SQ SCH ×4 (05:57→20:07)
[2021-03-17 06:59] LABS: BASOPHILS % (AUTO) 0.3 % (0.0-5.0); EOSINOPHILS % (AUTO) 5.6 % (0.0-8.0); HEMATOCRIT 27.9 % (42-54); LYMPHOCYTES % (AUTO) 6.9 % (21.0-51.0); MEAN CORPUSCULAR HEMOGLOBIN 29.1 pg (27.0-33.0); MEAN CORPUSCULAR HGB CONC 32.6 g/dL (32.0-36.0); MEAN CORPUSCULAR VOLUME 89.1 fL (79-99); MONOCYTES % (AUTO) 10.8 % (3.0-13.0); PLATELET COUNT (AUTO) 67 K/uL (130-400); RED BLOOD CELL COUNT(AUTO) 3.13 MIL/uL (4.50-6.20); RED CELL DISTRIBUTION WIDTH 15.8 % (11.0-15.5); WHITE BLOOD COUNT (AUTO) 9.4 K/uL (4.8-10.8)
[2021-03-17 07:21] LABS: POTASSIUM 5.1 mmol/L (3.5-5.1)
[2021-03-17 08:06] LABS: CREATININE 10.8 mg/dL (0.5-1.5)
[2021-03-17] MEDS: PANTOPRAZOLE 40 MG/VIAL IVP SCH (10:34)
[2021-03-17] MEDS: MIDODRINE HCL 5 MG TABLET PO SCH ×3 (10:34→20:06)
[2021-03-17] MEDS ORDERED: PHARMACY COMMUNICATION MISC SCH (13:30)
[2021-03-17] MEDS: BACITRACIN 28.4 GM OINT TP SCH (13:45)
[2021-03-17] MEDS: PHARMACY COMMUNICATION MISC SCH ×2 (20:10→20:11)
[2021-03-17 22:39] LABS: APPEARANCE,URINE Cloudy (CLEAR); BILIRUBIN,URINE Negative (NEGATIVE); COLOR,URINE Yellow (YELLOW); GLUCOSE, URINE (UA) TRACE mg/dL (NEGATIVE); KETONES,URINE Negative (NEGATIVE); LEUKOCYTE ESTERASE ,URINE Trace (NEGATIVE); NITRATE,URINE Negative (NEGATIVE); OCCULT BLOOD,URINE Moderate (NEGATIVE); PH,URINE 8.5 (5.0-8.0); PROTEIN,URINE POS 2+ mg/dL (NEGATIVE)
[2021-03-17 22:52] LABS: BACTERIA,URINE None Seen /HPF (None Seen); MUCUS,URINE Moderate LPF (None Seen); SQUAMOUS EPITHELIAL CELL,UR Few /HPF (0-2); WBC,URINE 0-1 /HPF (0-1)
[2021-03-18] VITALS (14 sets, daily range): BP systolic 95–136; BP diastolic 56–79
[2021-03-18] MEDS: HYDROMORPHONE 1 MG INJ IVP PRN ×6 (00:04→22:10)
[2021-03-18] MEDS: ACETAMINOPHEN WITH CODEINE 1 TAB TAB PO PRN ×3 (01:18→20:06)
[2021-03-18] MEDS: PHARMACY COMMUNICATION MISC SCH ×8 (01:30→20:08)
[2021-03-18] MEDS: INSULIN R PO SS1 SQ SCH ×4 (05:27→20:28)
[2021-03-18 05:40] LABS: HEMATOCRIT 28.5 % (42-54); MEAN CORPUSCULAR HEMOGLOBIN 29.4 pg (27.0-33.0); MEAN CORPUSCULAR HGB CONC 32.6 g/dL (32.0-36.0); MEAN CORPUSCULAR VOLUME 90.2 fL (79-99); PLATELET COUNT (AUTO) 83 K/uL (130-400); RED BLOOD CELL COUNT(AUTO) 3.16 MIL/uL (4.50-6.20); RED CELL DISTRIBUTION WIDTH 15.5 % (11.0-15.5); WHITE BLOOD COUNT (AUTO) 8.2 K/uL (4.8-10.8)
[2021-03-18 06:30] LABS: BAND NEUTROPHILS % (MANUAL) 1 % (0-2); EOSINOPHILS % (MANUAL) 6 % (1-6); LYMPHOCYTES % (MANUAL) 11 % (22-44); MAN.DIFF COMMENT-IMPRESSION MANUAL DIFFERENTIAL; MONOCYTES % (MANUAL) 6 % (2-9); PLATELET MORPHOLOGY COMMENT DECREASED; SEGMENTED NEUTROPHILS % 76 % (40-70)
[2021-03-18 06:42] LABS: PHOSPHORUS 8.3 mg/dL (2.5-4.9)
[2021-03-18 06:44] LABS: CREATININE 11.4 mg/dL (0.5-1.5)
[2021-03-18] MEDS: PANTOPRAZOLE 40 MG/VIAL IVP SCH (09:08)
[2021-03-18] MEDS: BACITRACIN 28.4 GM OINT TP SCH (09:08)
[2021-03-18] MEDS: MIDODRINE HCL 5 MG TABLET PO SCH ×3 (09:08→20:06)
[2021-03-18] MEDS: EPOETIN ALFA-EPBX (ESRD) 10,000 UNIT/ML VIAL SQ SCH (11:09)
[2021-03-18] MEDS: VANCOMYCIN 750MG VIAL IVPB SCH (17:18)
[2021-03-19 00:09] VITALS: BP 106/70
[2021-03-19] MEDS: PHARMACY COMMUNICATION MISC SCH ×5 (01:30→23:40)
[2021-03-19] MEDS: HYDROMORPHONE 1 MG INJ IVP PRN ×3 (02:10→09:51)
[2021-03-19 04:00] VITALS: BP 106/69
[2021-03-19] MEDS: INSULIN R PO SS1 SQ SCH ×4 (06:03→20:10)
[2021-03-19 08:01] VITALS: BP 129/80
[2021-03-19] MEDS: PANTOPRAZOLE 40 MG/VIAL IVP SCH (08:49)
[2021-03-19] MEDS: MIDODRINE HCL 5 MG TABLET PO SCH ×3 (08:50→20:10)
[2021-03-19] MEDS: BACITRACIN 28.4 GM OINT TP SCH (09:00)
[2021-03-19] MEDS: LACTULOSE 20 GM/30 ML UDCUP PO SCH ×3 (11:49→23:40)
[2021-03-19] MEDS ORDERED: HYDROCODONE/ACETAMINOPHEN 10/325 MG TAB PO PRN (12:00)
[2021-03-19 12:01] VITALS: BP 113/72
[2021-03-19 16:00] VITALS: BP 125/73
[2021-03-19 19:15] VITALS: BP 131/89
[2021-03-20] VITALS (18 sets, daily range): BP systolic 100–136; BP diastolic 60–79
[2021-03-20] MEDS: PHARMACY COMMUNICATION MISC SCH (05:18)
[2021-03-20] MEDS: LACTULOSE 20 GM/30 ML UDCUP PO SCH ×3 (05:18→16:59)
[2021-03-20] MEDS: INSULIN R PO SS1 SQ SCH ×4 (06:39→21:00)
[2021-03-20] MEDS: PANTOPRAZOLE 40 MG/VIAL IVP SCH (08:20)
[2021-03-20] MEDS: MIDODRINE HCL 5 MG TABLET PO SCH ×3 (08:20→21:10)
[2021-03-20] MEDS: BACITRACIN 28.4 GM OINT TP SCH (08:33)
[2021-03-20] MEDS: EPOETIN ALFA-EPBX (ESRD) 10,000 UNIT/ML VIAL SQ SCH ×2 (09:00→11:39)
[2021-03-20] MEDS ORDERED: HYDROCODONE PO (09:34)
[2021-03-20] MEDS ORDERED: APAP PO (09:34)
[2021-03-20] MEDS ORDERED: ONDA4VIA22 IVP (09:34)
[2021-03-20] MEDS ORDERED: Midodrine Hcl PO (09:34)
[2021-03-20] MEDS ORDERED: Vancomycin Protocol IV (09:34)
[2021-03-20] MEDS ORDERED: LACT PO (09:34)
[2021-03-20] MEDS ORDERED: 0.9%NACL 1000ML 1,000 ML IV PRN (12:00)
[2021-03-20] MEDS: HYDROMORPHONE 1 MG INJ IVP PRN ×2 (13:17→18:48)
[2021-03-20] MEDS: VANCOMYCIN 750MG VIAL IVPB SCH (16:59)
[2021-03-21] VITALS: BP 116/71
[2021-03-21] MEDS: LACTULOSE 20 GM/30 ML UDCUP PO SCH
[2021-03-21] MEDS: HYDROMORPHONE 1 MG INJ IVP PRN (00:01)
== END 2021-03-21 03:55 | DRG 471 ==
LOC: EDH 11:44 → EDHIP 17:27 → 3BH 03-14 03:09 → 3CH 03-15 02:12
PROVIDERS: ADMIT Internal Medicine Nephrology; ATTEND Internal Medicine Nephrology
PROC: 5A1D70Z Performance of Urinary Filtration, Intermittent, Less than 6 Hours Per Day (ICD-10-PCS; 2021-03-15)
PROC: 30233N1 Transfusion of Nonautologous Red Blood Cells into Peripheral Vein, Percutaneous Approach (ICD-10-PCS; 2021-03-15 14:41)
PROC: 5A1D70Z Performance of Urinary Filtration, Intermittent, Less than 6 Hours Per Day (ICD-10-PCS; 2021-03-18)
PROC: BR101ZZ Fluoroscopy of Cervical Spine using Low Osmolar Contrast (ICD-10-PCS; principal; 2021-03-19)
PROC: 0RG10A0 Fusion of Cervical Vertebral Joint with Interbody Fusion Device, Anterior Approach, Anterior Column, Open Approach (ICD-10-PCS; 2021-03-19)
PROC: 0RP10AZ Removal of Interbody Fusion Device from Cervical Vertebral Joint, Open Approach (ICD-10-PCS; 2021-03-19)
PROC: 5A1D70Z Performance of Urinary Filtration, Intermittent, Less than 6 Hours Per Day (ICD-10-PCS; 2021-03-20)
DX: T84.038A Mechanical loosening of other internal prosthetic joint, initial encounter (principal); N18.6 End stage renal disease; I12.0 Hypertensive chronic kidney disease with stage 5 chronic kidney disease or end stage renal disease; M86.8X8 Other osteomyelitis, other site; E87.5 Hyperkalemia; E11.22 Type 2 diabetes mellitus with diabetic chronic kidney disease; D72.829 Elevated white blood cell count, unspecified; D64.9 Anemia, unspecified; E11.649 Type 2 diabetes mellitus with hypoglycemia without coma; I25.10 Atherosclerotic heart disease of native coronary artery without angina pectoris; I95.89 Other hypotension; Y83.8 Other surgical procedures as the cause of abnormal reaction of the patient, or of later complication, without mention of misadventure at the time of the procedure; E11.69 Type 2 diabetes mellitus with other specified complication; E78.00 Pure hypercholesterolemia, unspecified; Z20.822 Contact with and (suspected) exposure to COVID-19; Z99.2 Dependence on renal dialysis; Z98.84 Bariatric surgery status; Z88.0 Allergy status to penicillin; Z91.048 Other nonmedicinal substance allergy status; Z91.15 Patient's noncompliance with renal dialysis; Z91.19 Patient's noncompliance with other medical treatment and regimen; Y92.89 Other specified places as the place of occurrence of the external cause
CPT/HCPCS: 36415; 71045; 72020; 72125; 80048; 80053; 80202; 81001; 82435; 82803; 82947; 82948; 83605; 83735; 84100; 84132; 84295; 84484; 85014; 85018; 85025; 85027; 86850; 86900; 86901; 86923; 87070; 87076; 87205; 87635; 88300; 90935; 92610; 93005; 94640; 97039; A4344; C9113; G0378; J0610; J1170; J1815; J2001; J2175; J2250; J2270; J2405; J2704; J2710; J3010; J3260; J3370; J3490; J7030; J7050; J7070; P9016; P9045